=== PATIENT | male | born 1960 | race African-American/Black ===

== ENCOUNTER 2023-05-25 13:05 | Inpatient (IN) | payer OTHER ==
[~2023-05-25] VITALS: Ht 175.3 cm; Wt 72.8 kg
[2023-05-25] MEDS ORDERED: metformin (13:12)
[2023-05-25] MEDS ORDERED: gabapentin (13:12)
[2023-05-25] MEDS ORDERED: LIDOCAINE HCL/EPINEPHRINE 1%-EPI 1:100,000 20 ML VIAL INFIL ONE (13:15)
[2023-05-25 15:15] LABS: HEMOGLOBIN. 10.1 g/dL (14.0-18.0); MEAN CORPUSCULAR HEMOGLOBIN 29.2 pg (28.0-32.0); MEAN CORPUSCULAR HGB CONC 32.7 g/dL (31.0-37.0); MEAN CORPUSCULAR VOLUME 89.6 fL (80.0-94.0); MEAN PLATELET VOLUME 8.2 fl (7.4-10.4); PLATELET 302 x1000/uL (130-400); RED BLOOD CELL COUNT 3.47 mill/uL (4.7-6.1); RED CELL DISTRIBUTION WIDTH 15.8 % (11.6-14.6); WHITE BLOOD COUNT 33.5 x1000/uL (4.5-11.0)
[2023-05-25 15:18] LABS: DIFFERENTIAL COMMENT 1
[2023-05-25 15:23] LABS: INR 1.3; PARTIAL THROMBOPLASTIN TIME 37.2 sec (23.4-31.0); PROTHROMBIN TIME 13.7 sec (9.6-11.0)
[2023-05-25 15:26] LABS: CHLORIDE 92 mEq/L (98-107); INDEX HEMOLYSI 1 (1-3); INDEX ICTERIC 1 (1-4); INDEX LIPEMIC 1 (1-3); POTASSIUM 4.3 mEq/L (3.5-5.1); SODIUM 127 mEq/L (136-145)
[2023-05-25 15:34] LABS: ALANINE AMINOTRANSFERASE 30 IU/L (13-61); ALBUMIN 1.9 g/dL (3.4-5.0); ASPARTATE AMINOTRANSFERASE 14 IU/L (15-37); CALCIUM 8.3 mg/dL (8.5-10.1); CARBON DIOXIDE 27 mEq/L (21-32); CREATININE 0.8 mg/dL (0.6-1.3); PROTEIN TOTAL 8.1 g/dL (6.0-8.3); UREA NITROGEN BLOOD 23 mg/dL (7-21)
[2023-05-25 15:50] LABS: GLUCOSE 554 mg/dL (70-105)
[2023-05-25 16:26] LABS: PLATELET ESTIMATE NORMAL
[2023-05-25] MEDS ORDERED: PIPERACILLIN/TAZ 3.375G PREMIX 50 ML IV ONE (19:00)
[2023-05-25] MEDS ORDERED: VANCOMYCIN 1G PREMIX 200 ML IV ONE (19:00)
[2023-05-25] MEDS ORDERED: SODIUM CHLORIDE 0.9% 1000ML BAG (SEPSIS BOLUS) IV ONE (19:00)
[2023-05-25] MEDS ORDERED: LINEZOLID 600 MG PREMIX 300 ML IV SCH (19:15)
[2023-05-25] MEDS ORDERED: PIPERACILLIN/TAZ 3.375G PREMIX 50 ML IV NR (19:45)
[2023-05-25 20:25] LABS: INR 1.3; PROTHROMBIN TIME 13.9 sec (9.6-11.0)
[2023-05-26] VITALS: BP 108/74; PULSE 91; RESP 20; TEMP 100.4
[2023-05-26] MEDS: SODIUM CHLORIDE 0.9% 1,000 ML IV SCH ×3 (02:01→22:00)
[2023-05-26 02:32] VITALS: BP 108/74; PULSE 91; RESP 18; TEMP 100.4
[2023-05-26] MEDS ORDERED: VANCOMYCIN 1.5GM/250ML IVPB 250 ML IV NR (03:30)
[2023-05-26 04:00] VITALS: BP 105/71; PULSE 84; RESP 20; TEMP 100.9
[2023-05-26] MEDS: BLOOD SUGAR DIAGNOSTIC STRIP TEST SCH ×4 (07:04→21:00)
[2023-05-26] MEDS: INSULIN LISPRO 100 UNITS/ML SUBCUT SCH ×5 (07:06→21:00)
[2023-05-26] MEDS: PIPERACILLIN/TAZOBACTAM 3.375 G in DEXTROSE 5% WATER 50 ML IV SCH ×3 (07:17→22:32)
[2023-05-26] MEDS: INSULIN GLARGINE 100 UNITS/ML SUBCUT SCH ×2 (10:00→22:17)
[2023-05-26] MEDS ORDERED: LIDOCAINE HCL 1% 10 MG/ML 10ML VIAL ONE (13:26)
[2023-05-26] MEDS ORDERED: BUPIVACAINE HCL/PF 0.5% (5MG/ML) 10ML ONE (13:26)
[2023-05-26] MEDS ORDERED: POLYMYXIN B SULFATE 500000 UNITS/VIAL ONE (13:26)
[2023-05-26] MEDS ORDERED: VANCOMYCIN HCL 1 GM/VIAL ONE (13:27)
[2023-05-26] MEDS ORDERED: PROPOFOL 200MG/20ML VIAL IV ONE (14:20)
[2023-05-26] MEDS ORDERED: FENTANYL CITRATE/PF 50MCG/ML 2ML VIAL ONE (14:20)
[2023-05-26] MEDS ORDERED: ONDANSETRON HCL 4MG/2ML INJ IV PRN (15:45)
[2023-05-26] MEDS ORDERED: MEPERIDINE HCL/PF 25MG/ML CPJ IV PRN (15:45)
[2023-05-26] MEDS ORDERED: FENTANYL CITRATE/PF 50MCG/ML 2ML VIAL IV PRN (15:45)
[2023-05-26] MEDS ORDERED: DEXAMETHASONE 4MG/ML 1ML VIAL ONE (15:47)
[2023-05-26] MEDS ORDERED: ONDANSETRON HCL 4MG/2ML INJ ONE (15:47)
[2023-05-26] MEDS: VANCOMYCIN 1G PREMIX 200 ML IV SCH (17:35)
[2023-05-26 20:00] VITALS: BP_SYST 89; BP_SYST 92; BP_DIAS 53; BP_DIAS 54; PULSE 88; RESP 18; TEMP 96.5
[2023-05-26] MEDS ORDERED: FERR-63 PO (22:34)
[2023-05-26] MEDS ORDERED: METF-416 PO (22:34)
[2023-05-26] MEDS ORDERED: AMIKACIN SULFATE 500 MG in SODIUM CHLORIDE 0.9% 100 ML IV NR (23:00)
[2023-05-27] VITALS: BP 97/62; PULSE 84; RESP 18; TEMP 96.7
[2023-05-27] MEDS: VANCOMYCIN 1G PREMIX 200 ML IV SCH ×2 (03:30→15:30)
[2023-05-27 04:00] VITALS: BP 99/64; PULSE 74; RESP 18; TEMP 97.6
[2023-05-27] MEDS: PIPERACILLIN/TAZOBACTAM 3.375 G in DEXTROSE 5% WATER 50 ML IV SCH ×2 (05:20→14:00)
[2023-05-27 06:12] LABS: HEMATOCRIT. 21.2 % (42.0-52.0); MEAN CORPUSCULAR HEMOGLOBIN 29.2 pg (28.0-32.0); MEAN CORPUSCULAR HGB CONC 33.1 g/dL (31.0-37.0); MEAN CORPUSCULAR VOLUME 88.2 fL (80.0-94.0); MEAN PLATELET VOLUME 8.2 fl (7.4-10.4); PLATELET 248 x1000/uL (130-400); RED BLOOD CELL COUNT 2.41 mill/uL (4.7-6.1); RED CELL DISTRIBUTION WIDTH 15.7 % (11.6-14.6)
[2023-05-27 06:21] LABS: DIFFERENTIAL COMMENT 1
[2023-05-27 06:24] LABS: WHITE BLOOD COUNT 41.4 x1000/uL (4.5-11.0)
[2023-05-27 06:25] LABS: CALCIUM 7.2 mg/dL (8.7-10.4); CARBON DIOXIDE 28 mEq/L (21-32); CHLORIDE 104 mEq/L (98-107); CREATININE 0.8 mg/dL (0.6-1.3); POTASSIUM 4.1 mEq/L (3.5-5.1); SODIUM 137 mEq/L (136-145); UREA NITROGEN BLOOD 21 mg/dL (9-23)
[2023-05-27 06:37] LABS: GLUCOSE 185 mg/dL (70-105)
[2023-05-27] MEDS: SODIUM CHLORIDE 0.9% 1,000 ML IV SCH ×2 (06:56→17:23)
[2023-05-27] MEDS: BLOOD SUGAR DIAGNOSTIC STRIP TEST SCH ×4 (08:03→20:21)
[2023-05-27] MEDS: INSULIN LISPRO 100 UNITS/ML SUBCUT SCH ×4 (08:08→21:33)
[2023-05-27] MEDS: INSULIN GLARGINE 100 UNITS/ML SUBCUT SCH ×2 (10:20→21:33)
[2023-05-27 20:00] VITALS: BP 98/49; PULSE 100; RESP 20; TEMP 97.5
[2023-05-27] MEDS: MEROPENEM 1,000 MG in SODIUM CHLORIDE 0.9% 100 ML IV SCH (20:21)
[2023-05-27 21:06] LABS: PLATELET ESTIMATE NORMAL
[2023-05-27 21:07] LABS: ANISOCYTOSIS 1+; HYPOCHROMASIA 1+
[2023-05-28] VITALS (8 sets, daily range): BP systolic 93–121; BP diastolic 45–66; PULSE 64–101; RESP 16–20; TEMP 96.9–98.7
[2023-05-28] MEDS: ACETAMINOPHEN 650MG/20.3ML UDC PO PRN ×2 (00:28→21:13)
[2023-05-28] MEDS: SODIUM CHLORIDE 0.9% 1,000 ML IV SCH ×3 (02:24→23:15)
[2023-05-28] MEDS: VANCOMYCIN 1G PREMIX 200 ML IV SCH ×2 (02:46→17:43)
[2023-05-28] MEDS: MEROPENEM 1,000 MG in SODIUM CHLORIDE 0.9% 100 ML IV SCH ×2 (05:36→13:47)
[2023-05-28] MEDS: BLOOD SUGAR DIAGNOSTIC STRIP TEST SCH ×4 (07:13→21:04)
[2023-05-28] MEDS: INSULIN LISPRO 100 UNITS/ML SUBCUT SCH ×4 (07:14→21:11)
[2023-05-28 08:08] LABS: *AMPHETAMINES SCREEN URINE NEGATIVE (NEGATIVE); *BARBITURATES SCREEN URINE NEGATIVE (NEGATIVE); *BENZODIAZEPINES SCREEN URINE NEGATIVE (NEGATIVE); *COCAINE SCREEN URINE PRESUMPTIVE POSITIVE (NEGATIVE); CANNABINOID URINE SCREEN NEGATIVE (NEGATIVE); ECSTASY MDMA SCREEN URINE NEGATIVE (NEGATIVE); METHADONE URINE SCREEN Neg (NEGATIVE); OPIATES URINE SCREEN NEGATIVE (NEGATIVE); PHENCYCLIDINE URINE SCREEN NEGATIVE (NEGATIVE)
[2023-05-28 10:06] LABS: MEAN CORPUSCULAR HGB CONC 32.5 g/dL (31.0-37.0); MEAN CORPUSCULAR VOLUME 89.1 fL (80.0-94.0); MEAN PLATELET VOLUME 7.9 fl (7.4-10.4); PLATELET 320 x1000/uL (130-400); RED BLOOD CELL COUNT 2.21 mill/uL (4.7-6.1); RED CELL DISTRIBUTION WIDTH 15.9 % (11.6-14.6); WHITE BLOOD COUNT 35.7 x1000/uL (4.5-11.0)
[2023-05-28 10:12] LABS: DIFFERENTIAL COMMENT 1
[2023-05-28 10:15] LABS: HEMATOCRIT. 19.7 % (42.0-52.0); HEMOGLOBIN. 6.4 g/dL (14.0-18.0)
[2023-05-28 10:27] LABS: CALCIUM 7.1 mg/dL (8.7-10.4); CARBON DIOXIDE 25 mEq/L (21-32); CHLORIDE 102 mEq/L (98-107); CREATININE 0.7 mg/dL (0.6-1.3); GLUCOSE 160 mg/dL (70-105); POTASSIUM 3.9 mEq/L (3.5-5.1); SODIUM 133 mEq/L (136-145); UREA NITROGEN BLOOD 14 mg/dL (9-23)
[2023-05-28] MEDS: INSULIN GLARGINE 100 UNITS/ML SUBCUT SCH ×2 (11:00→21:11)
[2023-05-28 21:10] LABS: HEMATOCRIT 19.3 % (42.0-52.0); HEMOGLOBIN 6.4 g/dL (14.0-18.0)
[2023-05-29 00:20] VITALS: BP 95/57; PULSE 89; RESP 16; TEMP 96.8
[2023-05-29 01:05] VITALS: BP 102/63; PULSE 85; RESP 18; TEMP 99
[2023-05-29] MEDS: MEROPENEM 1,000 MG in SODIUM CHLORIDE 0.9% 100 ML IV SCH ×3 (01:30→18:20)
[2023-05-29 03:30] LABS: BASOPHILS % 0.1 % (0.0-2.0); EOSINOPHILS % 0.2 % (0.0-5.0); HEMATOCRIT. 22.2 % (42.0-52.0); HEMOGLOBIN. 7.3 g/dL (14.0-18.0); MEAN CORPUSCULAR HEMOGLOBIN 28.4 pg (28.0-32.0); MEAN CORPUSCULAR HGB CONC 32.7 g/dL (31.0-37.0); MEAN CORPUSCULAR VOLUME 86.7 fL (80.0-94.0); MEAN PLATELET VOLUME 7.4 fl (7.4-10.4); NEUTROPHILS % 85.7 % (40.0-76.0); PLATELET 401 x1000/uL (130-400); RED BLOOD CELL COUNT 2.56 mill/uL (4.7-6.1); RED CELL DISTRIBUTION WIDTH 18.1 % (11.6-14.6); WHITE BLOOD COUNT 28.8 x1000/uL (4.5-11.0)
[2023-05-29 03:44] LABS: INR 1.3; PROTHROMBIN TIME 13.6 sec (9.6-11.0)
[2023-05-29 03:57] LABS: CALCIUM 7.1 mg/dL (8.7-10.4); CARBON DIOXIDE 26 mEq/L (21-32); CHLORIDE 101 mEq/L (98-107); CREATININE 0.9 mg/dL (0.6-1.3); GLUCOSE 292 mg/dL (70-105); POTASSIUM 4.4 mEq/L (3.5-5.1); SODIUM 132 mEq/L (136-145); UREA NITROGEN BLOOD 16 mg/dL (9-23)
[2023-05-29 04:00] VITALS: BP 101/58; PULSE 97; RESP 18; TEMP 97.9
[2023-05-29] MEDS: VANCOMYCIN 1G PREMIX 200 ML IV SCH ×2 (05:11→18:00)
[2023-05-29 05:49] LABS: PLATELET ESTIMATE NORMAL
[2023-05-29] MEDS: BLOOD SUGAR DIAGNOSTIC STRIP TEST SCH ×4 (07:12→21:00)
[2023-05-29 08:00] VITALS: BP 116/70; PULSE 58; RESP 16; TEMP 96.8
[2023-05-29] MEDS: INSULIN GLARGINE 100 UNITS/ML SUBCUT SCH (10:00)
[2023-05-29] MEDS: INSULIN LISPRO 100 UNITS/ML SUBCUT SCH ×4 (10:09→21:00)
[2023-05-29 12:00] VITALS: BP 120/65; PULSE 60; RESP 17; TEMP 97.3
[2023-05-29 16:00] VITALS: BP 105/68; PULSE 68; RESP 17; TEMP 97.3
[2023-05-29] MEDS: SODIUM CHLORIDE 0.9% 1,000 ML IV SCH (19:15)
[2023-05-30] VITALS (7 sets, daily range): BP systolic 84–104; BP diastolic 46–66; PULSE 69–99; RESP 16–20; TEMP 97.7–101.7
[2023-05-30] MEDS: SODIUM CHLORIDE 0.9% 1,000 ML IV SCH (05:15)
[2023-05-30] MEDS: INSULIN LISPRO 100 UNITS/ML SUBCUT SCH ×2 (07:50→18:35)
[2023-05-30 08:23] LABS: BASOPHILS % 0.3 % (0.0-2.0); DIFFERENTIAL COMMENT 0; EOSINOPHILS % 0.2 % (0.0-5.0); LYMPHOCYTES % 10.2 % (20.0-50.0); MEAN CORPUSCULAR HEMOGLOBIN 28.7 pg (28.0-32.0); MEAN CORPUSCULAR HGB CONC 33.1 g/dL (31.0-37.0); MEAN CORPUSCULAR VOLUME 86.7 fL (80.0-94.0); MEAN PLATELET VOLUME 7.6 fl (7.4-10.4); NEUTROPHILS % 83.3 % (40.0-76.0); PLATELET 572 x1000/uL (130-400); RED BLOOD CELL COUNT 2.19 mill/uL (4.7-6.1); RED CELL DISTRIBUTION WIDTH 18.5 % (11.6-14.6); WHITE BLOOD COUNT 27.3 x1000/uL (4.5-11.0)
[2023-05-30 09:08] LABS: HEMOGLOBIN. 6.3 g/dL (14.0-18.0)
[2023-05-30] MEDS: MEROPENEM 1,000 MG in SODIUM CHLORIDE 0.9% 100 ML IV SCH (09:30)
[2023-05-30] MEDS: INSULIN GLARGINE 100 UNITS/ML SUBCUT SCH ×2 (09:39→22:00)
[2023-05-30] MEDS: ACETAMINOPHEN 650MG/20.3ML UDC PO PRN (15:44)
[2023-05-30] MEDS: DIPHENHYDRAMINE 50MG CAPSULE PO PRN (18:19)
[2023-05-30] MEDS: VANCOMYCIN 1G PREMIX 200 ML IV SCH (20:49)
[2023-05-30] MEDS: BLOOD SUGAR DIAGNOSTIC STRIP TEST SCH (21:00)
[2023-05-30] MEDS ORDERED: INSULIN LISPRO 100 UNITS/ML SUBCUT NR (22:15)
[2023-05-30] MEDS ORDERED: IOHEXOL-350 100 ML BOTTLE ONE (23:09)
[2023-05-31] VITALS (9 sets, daily range): BP systolic 94–135; BP diastolic 50–77; PULSE 83–99; RESP 16–20; TEMP 95.9–100.2
[2023-05-31] MEDS: SODIUM CHLORIDE 0.9% 1,000 ML IV SCH ×2 (01:15→21:09)
[2023-05-31] MEDS: MEROPENEM 1,000 MG in SODIUM CHLORIDE 0.9% 100 ML IV SCH ×3 (01:38→17:21)
[2023-05-31] MEDS: VANCOMYCIN 1G PREMIX 200 ML IV SCH ×2 (06:34→18:04)
[2023-05-31 07:11] LABS: BASOPHILS % 0.5 % (0.0-2.0); DIFFERENTIAL COMMENT 0; EOSINOPHILS % 0.5 % (0.0-5.0); LYMPHOCYTES % 11.7 % (20.0-50.0); MEAN CORPUSCULAR HEMOGLOBIN 29.4 pg (28.0-32.0); MEAN CORPUSCULAR HGB CONC 34.3 g/dL (31.0-37.0); MEAN CORPUSCULAR VOLUME 85.6 fL (80.0-94.0); MEAN PLATELET VOLUME 7.4 fl (7.4-10.4); MONOCYTES % 8.3 % (2.0-8.0); PLATELET 814 x1000/uL (130-400); RED BLOOD CELL COUNT 2.28 mill/uL (4.7-6.1); RED CELL DISTRIBUTION WIDTH 17.8 % (11.6-14.6); WHITE BLOOD COUNT 20.7 x1000/uL (4.5-11.0)
[2023-05-31] MEDS: BLOOD SUGAR DIAGNOSTIC STRIP TEST SCH ×4 (07:20→21:08)
[2023-05-31 07:44] LABS: CALCIUM 7.5 mg/dL (8.7-10.4); CARBON DIOXIDE 27 mEq/L (21-32); CHLORIDE 103 mEq/L (98-107); CREATININE 0.7 mg/dL (0.6-1.3); POTASSIUM 4.3 mEq/L (3.5-5.1); SODIUM 134 mEq/L (136-145); UREA NITROGEN BLOOD 14 mg/dL (9-23)
[2023-05-31 07:53] LABS: GLUCOSE 55 mg/dL (70-105); HEMOGLOBIN. 6.7 g/dL (14.0-18.0)
[2023-05-31 07:54] LABS: HEMATOCRIT. 19.5 % (42.0-52.0)
[2023-05-31] MEDS: INSULIN LISPRO 100 UNITS/ML SUBCUT SCH ×4 (09:22→21:00)
[2023-05-31] MEDS: INSULIN GLARGINE 100 UNITS/ML SUBCUT SCH ×2 (09:22→22:49)
[2023-05-31] MEDS: ACETAMINOPHEN 650MG/20.3ML UDC PO PRN (09:55)
[2023-05-31] MEDS: DIPHENHYDRAMINE 50MG CAPSULE PO PRN ×2 (09:59→23:25)
[2023-06-01] MEDS: MEROPENEM 1,000 MG in SODIUM CHLORIDE 0.9% 100 ML IV SCH ×3 (01:14→17:30)
[2023-06-01 05:36] LABS: HEMATOCRIT. 22.6 % (42.0-52.0); HEMOGLOBIN. 7.7 g/dL (14.0-18.0); MEAN CORPUSCULAR HEMOGLOBIN 29.4 pg (28.0-32.0); MEAN CORPUSCULAR HGB CONC 34.1 g/dL (31.0-37.0); MEAN CORPUSCULAR VOLUME 86.2 fL (80.0-94.0); PLATELET 975 x1000/uL (130-400); RED BLOOD CELL COUNT 2.62 mill/uL (4.7-6.1); RED CELL DISTRIBUTION WIDTH 17.3 % (11.6-14.6); WHITE BLOOD COUNT 20.2 x1000/uL (4.5-11.0)
[2023-06-01] MEDS: SODIUM CHLORIDE 0.9% 1,000 ML IV SCH (06:04)
[2023-06-01] MEDS: VANCOMYCIN 1G PREMIX 200 ML IV SCH (06:04)
[2023-06-01 06:24] LABS: DIFFERENTIAL COMMENT 1
[2023-06-01 07:20] LABS: CALCIUM 7.4 mg/dL (8.7-10.4); CARBON DIOXIDE 26 mEq/L (21-32); CHLORIDE 104 mEq/L (98-107); CREATININE 0.7 mg/dL (0.6-1.3); GLUCOSE 58 mg/dL (70-105); POTASSIUM 4.2 mEq/L (3.5-5.1); SODIUM 135 mEq/L (136-145); UREA NITROGEN BLOOD 15 mg/dL (9-23)
[2023-06-01] MEDS: BLOOD SUGAR DIAGNOSTIC STRIP TEST SCH ×4 (07:23→21:00)
[2023-06-01] MEDS: INSULIN LISPRO 100 UNITS/ML SUBCUT SCH ×3 (07:23→17:50)
[2023-06-01 08:00] VITALS: BP_SYST 111; BP_SYST 115; BP_DIAS 54; BP_DIAS 68; PULSE 59; PULSE 89; RESP 19; RESP 20; TEMP 95.5; TEMP 98
[2023-06-01] MEDS: INSULIN GLARGINE 100 UNITS/ML SUBCUT SCH (10:00)
[2023-06-01 10:37] LABS: ANISOCYTOSIS 1+; PLATELET ESTIMATE MARKEDLY INCREASED
[2023-06-01 12:00] VITALS: BP 99/56; PULSE 99; RESP 19; TEMP 100.2
[2023-06-01] MEDS ORDERED: LIDOCAINE HCL 1% 20ML VIAL (Pyxis) INJ ONE (14:29)
[2023-06-01] MEDS ORDERED: BUPIVACAINE HCL/PF 0.5% (5MG/ML) 10ML ONE (14:29)
[2023-06-01] MEDS: DEXT 5%/0.45% NACL 1000ML 1,000 ML IV SCH (16:15)
[2023-06-01] MEDS ORDERED: HYDROMORPHONE HCL/PF 2MG/ML CPJ ONE (17:48)
[2023-06-01] MEDS ORDERED: FENTANYL CITRATE/PF 50MCG/ML 2ML VIAL ONE (17:48)
[2023-06-01] MEDS ORDERED: LIDOCAINE HCL 1% 10 MG/ML 10ML VIAL ONE (17:48)
[2023-06-01] MEDS ORDERED: METOCLOPRAMIDE HCL 10MG/2ML VIAL ONE (17:48)
[2023-06-01] MEDS ORDERED: PROPOFOL 200MG/20ML VIAL IV ONE (17:48)
[2023-06-01] MEDS ORDERED: CEFAZOLIN SODIUM 1000MG/VIAL ONE (17:48)
[2023-06-01] MEDS ORDERED: ONDANSETRON HCL 4MG/2ML INJ ONE (17:48)
[2023-06-01 18:00] VITALS: BP 118/70; PULSE 18; RESP 16; TEMP 97.9
[2023-06-01] MEDS: DEXTROSE 50% WATER 50ML SYRINGE IV PRN (18:46)
[2023-06-01] MEDS ORDERED: FENTANYL CITRATE/PF 50MCG/ML 2ML VIAL IV PRN (21:00)
[2023-06-01] MEDS ORDERED: HYDROMORPHONE HCL/PF 2MG/ML CPJ IV PRN (21:00)
[2023-06-01] MEDS ORDERED: NALOXONE HCL 0.4 MG/ML 1ML VIAL ONE (22:05)
[2023-06-01] MEDS ORDERED: NALOXONE HCL 0.4MG/ML VIAL IV PRN (22:15)
[2023-06-01] MEDS ORDERED: NALOXONE HCL 0.4 MG/ML 1ML VIAL IV ONE (22:15)
[2023-06-01] MEDS ORDERED: IPRATROPIUM/ALBUTEROL 0.5-3(2.5)MG/3ML NEB HHN NR (22:45)
[2023-06-02] VITALS (38 sets, daily range): BP systolic 106–207; BP diastolic 67–157; PULSE 71–99; RESP 9–22; TEMP 97.6–99
[2023-06-02] MEDS: BLOOD SUGAR DIAGNOSTIC STRIP TEST SCH ×17 (04:17→20:00)
[2023-06-02] MEDS: DEXTROSE 50% WATER 50ML SYRINGE IV PRN ×5 (04:17→10:12)
[2023-06-02 05:51] LABS: BASOPHILS % 0.4 % (0.0-2.0); EOSINOPHILS % 0.2 % (0.0-5.0); HEMATOCRIT. 25.7 % (42.0-52.0); HEMOGLOBIN. 8.6 g/dL (14.0-18.0); LYMPHOCYTES % 7.9 % (20.0-50.0); MEAN CORPUSCULAR HEMOGLOBIN 29.9 pg (28.0-32.0); MEAN CORPUSCULAR HGB CONC 33.5 g/dL (31.0-37.0); MEAN CORPUSCULAR VOLUME 89.2 fL (80.0-94.0); MONOCYTES % 8.3 % (2.0-8.0); NEUTROPHILS % 83.2 % (40.0-76.0); RED BLOOD CELL COUNT 2.88 mill/uL (4.7-6.1); RED CELL DISTRIBUTION WIDTH 16.9 % (11.6-14.6)
[2023-06-02 06:23] LABS: CALCIUM 7.6 mg/dL (8.7-10.4); CARBON DIOXIDE 24 mEq/L (21-32); CHLORIDE 106 mEq/L (98-107); CREATININE 0.6 mg/dL (0.6-1.3); GLUCOSE 81 mg/dL (70-105); POTASSIUM 4.3 mEq/L (3.5-5.1); SODIUM 137 mEq/L (136-145); UREA NITROGEN BLOOD 10 mg/dL (9-23)
[2023-06-02] MEDS: INSULIN LISPRO 100 UNITS/ML SUBCUT SCH ×4 (07:00→21:00)
[2023-06-02 07:32] LABS: DIFFERENTIAL COMMENT 1
[2023-06-02] MEDS: INSULIN GLARGINE 100 UNITS/ML SUBCUT SCH (09:50)
[2023-06-02] MEDS: MEROPENEM 1,000 MG in SODIUM CHLORIDE 0.9% 100 ML IV SCH ×2 (11:25→17:37)
[2023-06-02] MEDS: VANCOMYCIN 1G PREMIX 200 ML IV SCH (12:18)
[2023-06-02] MEDS: DEXT 5%/0.45% NACL 1000ML 1,000 ML IV SCH (12:19)
[2023-06-02] MEDS: DEXT 10% WATER 1,000 ML IV SCH (15:36)
[2023-06-02] MEDS ORDERED: DIPHENHYDRAMINE 25MG CAPSULE PO PRN (16:30)
[2023-06-02] MEDS: MORPHINE SULFATE 4 MG/ML CPJ (NOT FOR IM USE) IV PRN (22:27)
[2023-06-03] VITALS (27 sets, daily range): BP systolic 92–183; BP diastolic 55–106; PULSE 65–95; RESP 9–20; TEMP 98.7–99.2
[2023-06-03 00:13] LABS: BASOPHILS % 0.7 % (0.0-2.0); EOSINOPHILS % 0.7 % (0.0-5.0); HEMATOCRIT. 22.2 % (42.0-52.0); HEMOGLOBIN. 7.3 g/dL (14.0-18.0); MEAN CORPUSCULAR HEMOGLOBIN 29.6 pg (28.0-32.0); MEAN CORPUSCULAR HGB CONC 32.9 g/dL (31.0-37.0); MEAN CORPUSCULAR VOLUME 89.8 fL (80.0-94.0); MEAN PLATELET VOLUME 6.6 fl (7.4-10.4); MONOCYTES % 9.6 % (2.0-8.0); RED BLOOD CELL COUNT 2.48 mill/uL (4.7-6.1); RED CELL DISTRIBUTION WIDTH 16.4 % (11.6-14.6); WHITE BLOOD COUNT 14.6 x1000/uL (4.5-11.0)
[2023-06-03 00:19] LABS: DIFFERENTIAL COMMENT 1
[2023-06-03 00:24] LABS: PLATELET 1087 x1000/uL (130-400)
[2023-06-03] MEDS: MEROPENEM 1,000 MG in SODIUM CHLORIDE 0.9% 100 ML IV SCH ×3 (02:00→18:00)
[2023-06-03] MEDS: MORPHINE SULFATE 4 MG/ML CPJ (NOT FOR IM USE) IV PRN (03:27)
[2023-06-03] MEDS: INSULIN LISPRO 100 UNITS/ML SUBCUT SCH ×3 (07:00→18:03)
[2023-06-03] MEDS: VANCOMYCIN 1G PREMIX 200 ML IV SCH ×4 (07:14→23:54)
[2023-06-03] MEDS: DEXT 10% WATER 1,000 ML IV SCH (10:49)
[2023-06-03 10:56] LABS: BASOPHILS % 0.7 % (0.0-2.0); EOSINOPHILS % 0.2 % (0.0-5.0); HEMATOCRIT. 26.7 % (42.0-52.0); HEMOGLOBIN. 8.9 g/dL (14.0-18.0); LYMPHOCYTES % 10.2 % (20.0-50.0); MEAN CORPUSCULAR HEMOGLOBIN 29.8 pg (28.0-32.0); MEAN CORPUSCULAR HGB CONC 33.4 g/dL (31.0-37.0); MEAN CORPUSCULAR VOLUME 89.2 fL (80.0-94.0); MEAN PLATELET VOLUME 6.6 fl (7.4-10.4); MONOCYTES % 7.7 % (2.0-8.0); NEUTROPHILS % 81.2 % (40.0-76.0); RED BLOOD CELL COUNT 2.99 mill/uL (4.7-6.1); RED CELL DISTRIBUTION WIDTH 15.9 % (11.6-14.6); WHITE BLOOD COUNT 15.7 x1000/uL (4.5-11.0)
[2023-06-03 11:01] LABS: DIFFERENTIAL COMMENT 1
[2023-06-03 11:02] LABS: PLATELET 1235 x1000/uL (130-400)
[2023-06-03] MEDS: BLOOD SUGAR DIAGNOSTIC STRIP TEST SCH ×3 (12:19→23:54)
[2023-06-03 12:47] LABS: CALCIUM 7.4 mg/dL (8.7-10.4); CARBON DIOXIDE 26 mEq/L (21-32); CHLORIDE 105 mEq/L (98-107); CREATININE 0.7 mg/dL (0.6-1.3); POTASSIUM 4.8 mEq/L (3.5-5.1); SODIUM 138 mEq/L (136-145); UREA NITROGEN BLOOD 12 mg/dL (9-23)
[2023-06-03 12:54] LABS: GLUCOSE 234 mg/dL (70-105)
[2023-06-03] MEDS ORDERED: THIAMINE HCL 100 MG in SODIUM CHLORIDE 0.9% 49 ML IV NR (22:30)
[2023-06-04] VITALS (36 sets, daily range): BP systolic 125–151; BP diastolic 64–102; PULSE 69–94; RESP 11–18; TEMP 97.8–98.7
[2023-06-04] MEDS: INSULIN LISPRO 100 UNITS/ML SUBCUT SCH ×5 (00:37→23:59)
[2023-06-04] MEDS: MEROPENEM 1,000 MG in SODIUM CHLORIDE 0.9% 100 ML IV SCH ×4 (02:35→23:55)
[2023-06-04] MEDS: BLOOD SUGAR DIAGNOSTIC STRIP TEST SCH ×4 (06:46→23:55)
[2023-06-04 09:49] LABS: HEMATOCRIT 23.8 % (42.0-52.0); HEMOGLOBIN 7.8 g/dL (14.0-18.0); MEAN CORPUSCULAR HEMOGLOBIN 29.1 pg (28.0-32.0); MEAN CORPUSCULAR HGB CONC 32.8 g/dL (31.0-37.0); MEAN CORPUSCULAR VOLUME 88.7 fL (80.0-94.0); RED BLOOD CELL COUNT 2.68 mill/uL (4.7-6.1); RED CELL DISTRIBUTION WIDTH 16.1 % (11.6-14.6); WHITE BLOOD COUNT 15.2 x1000/uL (4.5-11.0)
[2023-06-04 10:58] LABS: CALCIUM 7.5 mg/dL (8.7-10.4); CARBON DIOXIDE 28 mEq/L (21-32); CHLORIDE 105 mEq/L (98-107); CREATININE 0.6 mg/dL (0.6-1.3); GLUCOSE 156 mg/dL (70-105); SODIUM 139 mEq/L (136-145); UREA NITROGEN BLOOD 10 mg/dL (9-23)
[2023-06-04] MEDS: DEXT 10% WATER 1,000 ML IV SCH (11:51)
[2023-06-04] MEDS: PANTOPRAZOLE SODIUM 40 MG/VIAL IV SCH (11:52)
[2023-06-04] MEDS: DEXT 5%/0.9% NACL 1,000 ML IV SCH (13:16)
[2023-06-04 13:58] LABS: PLATELET 1242 x1000/uL (130-400)
[2023-06-04] MEDS: VANCOMYCIN 1G PREMIX 200 ML IV SCH (17:25)
[2023-06-05] VITALS (55 sets, daily range): BP systolic 113–156; BP diastolic 62–115; PULSE 60–93; RESP 8–25; TEMP 97.4–98.4
[2023-06-05] MEDS: MORPHINE SULFATE 4 MG/ML CPJ (NOT FOR IM USE) IV PRN (00:09)
[2023-06-05] MEDS: DEXT 5%/0.9% NACL 1,000 ML IV SCH ×2 (00:10→15:25)
[2023-06-05] MEDS: BLOOD SUGAR DIAGNOSTIC STRIP TEST SCH ×4 (06:52→17:17)
[2023-06-05] MEDS: INSULIN LISPRO 100 UNITS/ML SUBCUT SCH ×4 (07:02→18:14)
[2023-06-05] MEDS: PANTOPRAZOLE SODIUM 40 MG/VIAL IV SCH (08:21)
[2023-06-05] MEDS: MEROPENEM 1,000 MG in SODIUM CHLORIDE 0.9% 100 ML IV SCH ×2 (08:21→17:17)
[2023-06-05] MEDS ORDERED: LORAZEPAM 2MG/ML INJ IV NR (09:30)
[2023-06-05] MEDS ORDERED: LORAZEPAM 4MG/ML INJ IV NR (09:33)
[2023-06-05] MEDS: VANCOMYCIN 1G PREMIX 200 ML IV SCH (11:34)
[2023-06-05 12:25] LABS: HEMATOCRIT 25.9 % (42.0-52.0); HEMOGLOBIN 8.5 g/dL (14.0-18.0); MEAN CORPUSCULAR HEMOGLOBIN 28.8 pg (28.0-32.0); MEAN CORPUSCULAR HGB CONC 32.8 g/dL (31.0-37.0); MEAN CORPUSCULAR VOLUME 87.7 fL (80.0-94.0); RED BLOOD CELL COUNT 2.95 mill/uL (4.7-6.1); RED CELL DISTRIBUTION WIDTH 15.9 % (11.6-14.6); WHITE BLOOD COUNT 12.2 x1000/uL (4.5-11.0)
[2023-06-05] MEDS ORDERED: LIDOCAINE HCL/PF 1% 10 MG/ML 5ML VIAL ONE (12:29)
[2023-06-05 12:45] LABS: CALCIUM 7.1 mg/dL (8.7-10.4); CARBON DIOXIDE 29 mEq/L (21-32); CHLORIDE 107 mEq/L (98-107); CREATININE 0.7 mg/dL (0.6-1.3); GLUCOSE 148 mg/dL (70-105); POTASSIUM 3.9 mEq/L (3.5-5.1); SODIUM 140 mEq/L (136-145); UREA NITROGEN BLOOD 11 mg/dL (9-23)
[2023-06-05] MEDS: ASPIRIN 81MG TABLET PO SCH (13:57)
[2023-06-05 15:48] LABS: PLATELET 1269 x1000/uL (130-400)
[2023-06-06] VITALS (26 sets, daily range): BP systolic 79–159; BP diastolic 53–100; PULSE 74–95; RESP 0–30; TEMP 97.4–99.5
[2023-06-06] MEDS: MEROPENEM 1,000 MG in SODIUM CHLORIDE 0.9% 100 ML IV SCH ×3 (01:39→17:45)
[2023-06-06] MEDS: MORPHINE SULFATE 4 MG/ML CPJ (NOT FOR IM USE) IV PRN ×3 (02:56→22:10)
[2023-06-06] MEDS: DEXT 5%/0.9% NACL 1,000 ML IV SCH ×2 (03:45→17:46)
[2023-06-06] MEDS: VANCOMYCIN 1G PREMIX 200 ML IV SCH ×2 (05:22→23:18)
[2023-06-06] MEDS: BLOOD SUGAR DIAGNOSTIC STRIP TEST SCH ×4 (05:22→23:56)
[2023-06-06 05:33] LABS: BASOPHILS % 0.9 % (0.0-2.0); EOSINOPHILS % 1.3 % (0.0-5.0); HEMATOCRIT. 24.4 % (42.0-52.0); HEMOGLOBIN. 8.2 g/dL (14.0-18.0); LYMPHOCYTES % 19.3 % (20.0-50.0); MEAN CORPUSCULAR HEMOGLOBIN 29.9 pg (28.0-32.0); MEAN CORPUSCULAR HGB CONC 33.4 g/dL (31.0-37.0); MEAN CORPUSCULAR VOLUME 89.5 fL (80.0-94.0); MEAN PLATELET VOLUME 6.2 fl (7.4-10.4); MONOCYTES % 9.1 % (2.0-8.0); NEUTROPHILS % 69.4 % (40.0-76.0); RED BLOOD CELL COUNT 2.73 mill/uL (4.7-6.1); RED CELL DISTRIBUTION WIDTH 15.8 % (11.6-14.6); WHITE BLOOD COUNT 11.4 x1000/uL (4.5-11.0)
[2023-06-06] MEDS: INSULIN LISPRO 100 UNITS/ML SUBCUT SCH ×5 (05:33→23:57)
[2023-06-06 05:54] LABS: CALCIUM 7.1 mg/dL (8.7-10.4); CARBON DIOXIDE 30 mEq/L (21-32); CHLORIDE 109 mEq/L (98-107); CREATININE 0.6 mg/dL (0.6-1.3); GLUCOSE 160 mg/dL (70-105); POTASSIUM 3.9 mEq/L (3.5-5.1); SODIUM 142 mEq/L (136-145); UREA NITROGEN BLOOD 10 mg/dL (9-23)
[2023-06-06 06:34] LABS: DIFFERENTIAL COMMENT 1; PLATELET 1181 x1000/uL (130-400)
[2023-06-06] MEDS: PANTOPRAZOLE SODIUM 40 MG/VIAL IV SCH (08:40)
[2023-06-06] MEDS: ASPIRIN 81MG TABLET PO SCH (08:40)
[2023-06-07] VITALS (71 sets, daily range): BP systolic 105–176; BP diastolic 67–112; PULSE 58–113; RESP 8–22; TEMP 97.4–99.6
[2023-06-07] MEDS: MEROPENEM 1,000 MG in SODIUM CHLORIDE 0.9% 100 ML IV SCH ×3 (00:44→16:37)
[2023-06-07 05:11] LABS: BASOPHILS % 1.2 % (0.0-2.0); EOSINOPHILS % 1.9 % (0.0-5.0); HEMATOCRIT. 24.4 % (42.0-52.0); LYMPHOCYTES % 17.3 % (20.0-50.0); MEAN CORPUSCULAR HEMOGLOBIN 29.5 pg (28.0-32.0); MEAN CORPUSCULAR HGB CONC 32.7 g/dL (31.0-37.0); MEAN CORPUSCULAR VOLUME 90.2 fL (80.0-94.0); MEAN PLATELET VOLUME 6.4 fl (7.4-10.4); MONOCYTES % 7.9 % (2.0-8.0); NEUTROPHILS % 71.7 % (40.0-76.0); WHITE BLOOD COUNT 12.8 x1000/uL (4.5-11.0)
[2023-06-07 05:20] LABS: DIFFERENTIAL COMMENT 1
[2023-06-07 05:22] LABS: PLATELET 1013 x1000/uL (130-400)
[2023-06-07] MEDS: INSULIN LISPRO 100 UNITS/ML SUBCUT SCH ×4 (05:27→23:19)
[2023-06-07] MEDS: BLOOD SUGAR DIAGNOSTIC STRIP TEST SCH ×4 (05:27→23:08)
[2023-06-07 05:36] LABS: CALCIUM 7.3 mg/dL (8.7-10.4); CARBON DIOXIDE 30 mEq/L (21-32); CHLORIDE 109 mEq/L (98-107); CREATININE 0.6 mg/dL (0.6-1.3); GLUCOSE 240 mg/dL (70-105); POTASSIUM 4.1 mEq/L (3.5-5.1); SODIUM 143 mEq/L (136-145); UREA NITROGEN BLOOD 9 mg/dL (9-23)
[2023-06-07] MEDS ORDERED: LIDOCAINE HCL 1%/EPI 1:200,000 30 ML VIAL ONE (06:20)
[2023-06-07] MEDS: DEXT 5%/0.9% NACL 1,000 ML IV SCH ×2 (06:45→21:00)
[2023-06-07] MEDS ORDERED: LIDOCAINE HCL 1% 10 MG/ML 10ML VIAL ONE (07:27)
[2023-06-07] MEDS ORDERED: ONDANSETRON HCL 4MG/2ML INJ ONE (07:27)
[2023-06-07] MEDS ORDERED: MIDAZOLAM HCL 2 MG/2 ML VIAL ONE (07:27)
[2023-06-07] MEDS ORDERED: DEXAMETHASONE 4MG/ML 1ML VIAL ONE (07:27)
[2023-06-07] MEDS ORDERED: PROPOFOL 200MG/20ML VIAL IV ONE (07:27)
[2023-06-07] MEDS ORDERED: FENTANYL CITRATE/PF 50MCG/ML 2ML VIAL ONE (07:27)
[2023-06-07] MEDS ORDERED: ROCURONIUM BROMIDE 10MG/ML VIAL 5ML IV ONE (08:09)
[2023-06-07 09:07] LABS: IMMUNOGLOBULIN A 507 mg/dL (61-437); IMMUNOGLOBULIN G 2375 mg/dL (603-1613); IMMUNOGLOBULIN M 46 mg/dL (20-172)
[2023-06-07] MEDS ORDERED: HYDROMORPHONE HCL/PF 2MG/ML CPJ ONE (09:23)
[2023-06-07] MEDS: PANTOPRAZOLE SODIUM 40 MG/VIAL IV SCH (11:33)
[2023-06-07 11:37] LABS: BG BASE EXCESS 1.8 mmol/L (-2.0-2.0); BG CARBOXYHEMOGLOBIN 0.2 % (0.5-1.5); BG DEOXYHEMOGLOBIN 5.7 % (0.0-5.0); BG METHEMOGLOBIN 0.3 % (0.0-1.5); BG OXYGEN SATURATION 94.3 % (92.0-98.5); BG OXYHEMOGLOBIN 93.8 % (94.0-97.0); BG PCO2 51.1 mmHg (35.0-45.0); BG PH 7.357 (7.350-7.450); BG PO2 77.7 mmHg (75.0-100.0); BG SAMPLE SITE RIGHT RADIAL; BG TOTAL HEMOGLOBIN 11.4 g/dL (12.0-18.0); BG VENT MODE VENT - AC
[2023-06-07] MEDS ORDERED: FENTANYL 2500MCG/250ML PMX 250 ML IV ONE (11:45)
[2023-06-07] MEDS ORDERED: NALOXONE HCL 0.4MG/ML VIAL IV PRN (11:45)
[2023-06-07] MEDS: MORPHINE SULFATE 4 MG/ML CPJ (NOT FOR IM USE) IV PRN (11:53)
[2023-06-07] MEDS ORDERED: FENTANYL CITRATE 2,500 MCG in SODIUM CHLORIDE 0.9% 200 ML IV PRN (12:00)
[2023-06-07] MEDS: PROPOFOL 10MG/ML 100ML 100 ML IV PRN ×2 (12:16→17:20)
[2023-06-07] MEDS: IPRATROPIUM/ALBUTEROL 0.5-3(2.5)MG/3ML NEB HHN SCH ×2 (14:11→20:19)
[2023-06-07] MEDS: VANCOMYCIN 1G PREMIX 200 ML IV SCH (17:19)
[2023-06-08] VITALS (62 sets, daily range): BP systolic 91–179; BP diastolic 54–107; PULSE 58–140; RESP 9–22; TEMP 97.6–98.9; O2SAT 99
[2023-06-08] MEDS: PROPOFOL 10MG/ML 100ML 100 ML IV PRN ×2 (00:59→05:53)
[2023-06-08] MEDS: MEROPENEM 1,000 MG in SODIUM CHLORIDE 0.9% 100 ML IV SCH ×3 (01:00→17:13)
[2023-06-08] MEDS: IPRATROPIUM/ALBUTEROL 0.5-3(2.5)MG/3ML NEB HHN SCH ×5 (02:04→20:43)
[2023-06-08 05:41] LABS: BASOPHILS % 0.2 % (0.0-2.0); EOSINOPHILS % 0.4 % (0.0-5.0); HEMATOCRIT. 26.2 % (42.0-52.0); HEMOGLOBIN. 8.3 g/dL (14.0-18.0); LYMPHOCYTES % 14.5 % (20.0-50.0); MEAN CORPUSCULAR HEMOGLOBIN 28.4 pg (28.0-32.0); MEAN CORPUSCULAR HGB CONC 31.8 g/dL (31.0-37.0); MEAN CORPUSCULAR VOLUME 89.2 fL (80.0-94.0); MEAN PLATELET VOLUME 6.2 fl (7.4-10.4); MONOCYTES % 6.2 % (2.0-8.0); NEUTROPHILS % 78.7 % (40.0-76.0); RED BLOOD CELL COUNT 2.94 mill/uL (4.7-6.1); RED CELL DISTRIBUTION WIDTH 15.7 % (11.6-14.6); WHITE BLOOD COUNT 12.9 x1000/uL (4.5-11.0)
[2023-06-08] MEDS: BLOOD SUGAR DIAGNOSTIC STRIP TEST SCH ×3 (05:54→17:55)
[2023-06-08] MEDS: INSULIN LISPRO 100 UNITS/ML SUBCUT SCH ×4 (05:54→23:42)
[2023-06-08 06:07] LABS: DIFFERENTIAL COMMENT 1; PLATELET 1016 x1000/uL (130-400)
[2023-06-08 08:53] LABS: BG BASE EXCESS 3.3 mmol/L (-2.0-2.0); BG CARBOXYHEMOGLOBIN 0.3 % (0.5-1.5); BG DEOXYHEMOGLOBIN 1.3 % (0.0-5.0); BG FRACTION INSPIRED OXYGEN 40; BG HCO3 ACT 26.7 mmol/L (22.0-26.0); BG METHEMOGLOBIN 0.3 % (0.0-1.5); BG OXYGEN SATURATION 98.7 % (92.0-98.5); BG OXYHEMOGLOBIN 98.1 % (94.0-97.0); BG PCO2 35.5 mmHg (35.0-45.0); BG PH 7.494 (7.350-7.450); BG PO2 139.8 mmHg (75.0-100.0); BG SAMPLE SITE RIGHT RADIAL; BG TOTAL HEMOGLOBIN 8.6 g/dL (12.0-18.0); BG VENT MODE VENT - AC
[2023-06-08] MEDS: PANTOPRAZOLE SODIUM 40 MG/VIAL IV SCH (08:53)
[2023-06-08] MEDS: DEXT 5%/0.9% NACL 1,000 ML IV SCH (08:53)
[2023-06-08 09:04] LABS: CALCIUM 7.1 mg/dL (8.7-10.4); CARBON DIOXIDE 28 mEq/L (21-32); CHLORIDE 110 mEq/L (98-107); CREATININE 0.7 mg/dL (0.6-1.3); GLUCOSE 245 mg/dL (70-105); POTASSIUM 3.9 mEq/L (3.5-5.1); SODIUM 143 mEq/L (136-145); TRIGLYCERIDE 65 mg/dL (0-150); UREA NITROGEN BLOOD 9 mg/dL (9-23)
[2023-06-08] MEDS: VANCOMYCIN 1G PREMIX 200 ML IV SCH (11:31)
[2023-06-08 11:37] LABS: BG BASE EXCESS 4.9 mmol/L (-2.0-2.0); BG CARBOXYHEMOGLOBIN 0.3 % (0.5-1.5); BG FRACTION INSPIRED OXYGEN 40; BG HCO3 ACT 28.2 mmol/L (22.0-26.0); BG OXYHEMOGLOBIN 97.7 % (94.0-97.0); BG PCO2 36.3 mmHg (35.0-45.0); BG PH 7.508 (7.350-7.450); BG PO2 106.8 mmHg (75.0-100.0); BG SAMPLE SITE RIGHT RADIAL; BG VENT MODE VENT - CPAP
[2023-06-08] MEDS: MORPHINE SULFATE 4 MG/ML CPJ (NOT FOR IM USE) IV PRN (15:32)
[2023-06-08] MEDS: AMLODIPINE 10MG TABLET PO SCH (19:05)
[2023-06-08 22:17] LABS: PLATELET 1084 x1000/uL (130-400)
[2023-06-09] VITALS (34 sets, daily range): BP systolic 118–158; BP diastolic 54–129; PULSE 68–103; RESP 9–21; TEMP 98.4–98.8; O2SAT 97–100
[2023-06-09] MEDS: IPRATROPIUM/ALBUTEROL 0.5-3(2.5)MG/3ML NEB HHN SCH ×4 (01:03→19:42)
[2023-06-09] MEDS: MEROPENEM 1,000 MG in SODIUM CHLORIDE 0.9% 100 ML IV SCH ×3 (01:33→17:30)
[2023-06-09] MEDS: MORPHINE SULFATE 4 MG/ML CPJ (NOT FOR IM USE) IV PRN ×3 (01:54→19:52)
[2023-06-09 03:21] LABS: CALCIUM 7.4 mg/dL (8.7-10.4); CARBON DIOXIDE 30 mEq/L (21-32); CHLORIDE 110 mEq/L (98-107); CREATININE 0.6 mg/dL (0.6-1.3); GLUCOSE 152 mg/dL (70-105); POTASSIUM 3.9 mEq/L (3.5-5.1); SODIUM 144 mEq/L (136-145); UREA NITROGEN BLOOD 9 mg/dL (9-23)
[2023-06-09] MEDS: BLOOD SUGAR DIAGNOSTIC STRIP TEST SCH ×4 (06:00→18:43)
[2023-06-09] MEDS: VANCOMYCIN 1G PREMIX 200 ML IV SCH (06:19)
[2023-06-09] MEDS: PANTOPRAZOLE SODIUM 40 MG/VIAL IV SCH (09:02)
[2023-06-09] MEDS: AMLODIPINE 10MG TABLET PO SCH (09:03)
[2023-06-09] MEDS: MULTIVITAMINS,THER W-MINERALS TABLET PO SCH (09:03)
[2023-06-09] MEDS: INSULIN LISPRO 100 UNITS/ML SUBCUT SCH ×2 (12:00→18:00)
[2023-06-09] MEDS: RISPERIDONE 0.5MG TABLET PO SCH (17:00)
[2023-06-09] MEDS ORDERED: MORPHINE SULFATE 4 MG/ML CPJ (NOT FOR IM USE) IV PRN (21:45)
[2023-06-10] VITALS (18 sets, daily range): BP systolic 111–146; BP diastolic 64–117; PULSE 81–93; RESP 11–18; TEMP 98.1–99.5; O2SAT 96
[2023-06-10] MEDS: VANCOMYCIN 1G PREMIX 200 ML IV SCH ×2 (00:18→18:00)
[2023-06-10] MEDS: BLOOD SUGAR DIAGNOSTIC STRIP TEST SCH ×5 (00:37→22:54)
[2023-06-10] MEDS: MEROPENEM 1,000 MG in SODIUM CHLORIDE 0.9% 100 ML IV SCH ×3 (01:19→18:35)
[2023-06-10] MEDS: IPRATROPIUM/ALBUTEROL 0.5-3(2.5)MG/3ML NEB HHN SCH (02:03)
[2023-06-10 05:25] LABS: BASOPHILS % 0.8 % (0.0-2.0); EOSINOPHILS % 1.4 % (0.0-5.0); HEMATOCRIT. 25.8 % (42.0-52.0); HEMOGLOBIN. 8.5 g/dL (14.0-18.0); MEAN CORPUSCULAR HEMOGLOBIN 29.5 pg (28.0-32.0); MEAN CORPUSCULAR HGB CONC 32.9 g/dL (31.0-37.0); MEAN CORPUSCULAR VOLUME 89.8 fL (80.0-94.0); MEAN PLATELET VOLUME 6.3 fl (7.4-10.4); MONOCYTES % 6.2 % (2.0-8.0); NEUTROPHILS % 77.6 % (40.0-76.0); PLATELET 754 x1000/uL (130-400); RED BLOOD CELL COUNT 2.88 mill/uL (4.7-6.1); WHITE BLOOD COUNT 14.4 x1000/uL (4.5-11.0)
[2023-06-10 05:32] LABS: CALCIUM 7.7 mg/dL (8.7-10.4); CARBON DIOXIDE 31 mEq/L (21-32); CHLORIDE 107 mEq/L (98-107); CREATININE 0.6 mg/dL (0.6-1.3); GLUCOSE 219 mg/dL (70-105); SODIUM 143 mEq/L (136-145); UREA NITROGEN BLOOD 9 mg/dL (9-23)
[2023-06-10] MEDS: INSULIN LISPRO 100 UNITS/ML SUBCUT SCH ×5 (06:35→23:00)
[2023-06-10] MEDS: MULTIVITAMINS,THER W-MINERALS TABLET PO SCH (09:39)
[2023-06-10] MEDS: AMLODIPINE 10MG TABLET PO SCH (09:39)
[2023-06-10] MEDS: PANTOPRAZOLE SODIUM 40 MG/VIAL IV SCH (09:39)
[2023-06-10] MEDS: RISPERIDONE 0.5MG TABLET PO SCH ×2 (09:39→17:00)
[2023-06-10] MEDS ORDERED: HYDROCODONE/ACETAMINOPHEN 5/325MG TABLET PO PRN (11:00)
[2023-06-11] VITALS (15 sets, daily range): BP systolic 134–160; BP diastolic 74–99; PULSE 71–101; RESP 11–20; TEMP 95–98.2; O2SAT 93–98
[2023-06-11] MEDS: BLOOD SUGAR DIAGNOSTIC STRIP TEST SCH ×4 (05:06→23:13)
[2023-06-11] MEDS: INSULIN LISPRO 100 UNITS/ML SUBCUT SCH ×4 (05:21→23:20)
[2023-06-11] MEDS: AMLODIPINE 10MG TABLET PO SCH (08:04)
[2023-06-11] MEDS: RISPERIDONE 0.5MG TABLET PO SCH (08:04)
[2023-06-11] MEDS: MULTIVITAMINS,THER W-MINERALS TABLET PO SCH (08:05)
[2023-06-11] MEDS: PANTOPRAZOLE SODIUM 40 MG/VIAL IV SCH (08:05)
[2023-06-11] MEDS: IPRATROPIUM/ALBUTEROL 0.5-3(2.5)MG/3ML NEB HHN SCH ×3 (09:00→21:05)
[2023-06-11] MEDS ORDERED: MORPHINE SULFATE 2 MG/ML CPJ (NOT FOR IM USE) IV PRN (15:30)
[2023-06-11 18:34] LABS: AMMONIA 35 uMol/L (<32)
[2023-06-12] VITALS (13 sets, daily range): BP systolic 124–160; BP diastolic 60–90; PULSE 78–96; RESP 15–22; TEMP 97–98; O2SAT 97–100
[2023-06-12] MEDS: IPRATROPIUM/ALBUTEROL 0.5-3(2.5)MG/3ML NEB HHN SCH ×2 (01:13→08:37)
[2023-06-12] MEDS: BLOOD SUGAR DIAGNOSTIC STRIP TEST SCH ×3 (05:49→18:00)
[2023-06-12] MEDS: INSULIN LISPRO 100 UNITS/ML SUBCUT SCH ×3 (05:49→18:05)
[2023-06-12 06:43] LABS: BASOPHILS % 0.5 % (0.0-2.0); HEMATOCRIT. 26.5 % (42.0-52.0); LYMPHOCYTES % 12.1 % (20.0-50.0); MEAN CORPUSCULAR HEMOGLOBIN 29.6 pg (28.0-32.0); MEAN CORPUSCULAR HGB CONC 34.1 g/dL (31.0-37.0); MEAN CORPUSCULAR VOLUME 86.8 fL (80.0-94.0); MEAN PLATELET VOLUME 6.6 fl (7.4-10.4); MONOCYTES % 5.2 % (2.0-8.0); NEUTROPHILS % 81.2 % (40.0-76.0); PLATELET 556 x1000/uL (130-400); RED BLOOD CELL COUNT 3.05 mill/uL (4.7-6.1); RED CELL DISTRIBUTION WIDTH 16.1 % (11.6-14.6); WHITE BLOOD COUNT 15.7 x1000/uL (4.5-11.0)
[2023-06-12 07:34] LABS: CALCIUM 7.7 mg/dL (8.7-10.4); CARBON DIOXIDE 30 mEq/L (21-32); CHLORIDE 104 mEq/L (98-107); CREATININE 0.6 mg/dL (0.6-1.3); GLUCOSE 171 mg/dL (70-105); POTASSIUM 3.8 mEq/L (3.5-5.1); SODIUM 139 mEq/L (136-145); UREA NITROGEN BLOOD 14 mg/dL (9-23)
[2023-06-12] MEDS: PANTOPRAZOLE SODIUM 40 MG/VIAL IV SCH (08:40)
[2023-06-12] MEDS: MULTIVITAMINS,THER W-MINERALS TABLET PO SCH (08:47)
[2023-06-12] MEDS: AMLODIPINE 10MG TABLET PO SCH (08:48)
[2023-06-13] VITALS (13 sets, daily range): BP systolic 113–164; BP diastolic 80–112; PULSE 68–103; RESP 12–20; TEMP 97.1–97.7
[2023-06-13] MEDS: BLOOD SUGAR DIAGNOSTIC STRIP TEST SCH ×4 (00:57→17:15)
[2023-06-13] MEDS: INSULIN LISPRO 100 UNITS/ML SUBCUT SCH ×5 (06:00→17:33)
[2023-06-13] MEDS: IPRATROPIUM/ALBUTEROL 0.5-3(2.5)MG/3ML NEB HHN SCH (07:37)
[2023-06-13] MEDS: MULTIVITAMINS,THER W-MINERALS TABLET PO SCH (08:36)
[2023-06-13] MEDS: PANTOPRAZOLE SODIUM 40 MG/VIAL IV SCH (08:36)
[2023-06-13] MEDS: AMLODIPINE 10MG TABLET PO SCH (08:36)
[2023-06-14] VITALS (10 sets, daily range): BP systolic 93–167; BP diastolic 48–95; PULSE 70–90; RESP 13–19; TEMP 97.6–98.6
[2023-06-14] MEDS: BLOOD SUGAR DIAGNOSTIC STRIP TEST SCH ×4 (00:11→17:20)
[2023-06-14] MEDS: INSULIN LISPRO 100 UNITS/ML SUBCUT SCH ×3 (00:14→17:19)
[2023-06-14] MEDS: PANTOPRAZOLE SODIUM 40 MG/VIAL IV SCH (09:00)
[2023-06-14] MEDS: MULTIVITAMINS,THER W-MINERALS TABLET PO SCH (11:16)
[2023-06-14] MEDS: AMLODIPINE 10MG TABLET PO SCH (11:17)
[2023-06-14] MEDS ORDERED: CEFAZOLIN 1000MG PREMIX 50 ML IV ONE (13:45)
[2023-06-15] VITALS (11 sets, daily range): BP systolic 113–150; BP diastolic 70–107; PULSE 76–90; RESP 13–20; TEMP 97.9–101
[2023-06-15] MEDS: BLOOD SUGAR DIAGNOSTIC STRIP TEST SCH ×4 (00:49→17:23)
[2023-06-15] MEDS: INSULIN LISPRO 100 UNITS/ML SUBCUT SCH ×4 (00:49→17:23)
[2023-06-15 03:21] LABS: BASOPHILS % 0.7 % (0.0-2.0); EOSINOPHILS % 1.4 % (0.0-5.0); HEMATOCRIT. 24.7 % (42.0-52.0); HEMOGLOBIN. 8.2 g/dL (14.0-18.0); LYMPHOCYTES % 15.7 % (20.0-50.0); MEAN CORPUSCULAR HEMOGLOBIN 28.6 pg (28.0-32.0); MEAN CORPUSCULAR HGB CONC 33.1 g/dL (31.0-37.0); MEAN CORPUSCULAR VOLUME 86.5 fL (80.0-94.0); MEAN PLATELET VOLUME 6.5 fl (7.4-10.4); MONOCYTES % 6.9 % (2.0-8.0); NEUTROPHILS % 75.3 % (40.0-76.0); PLATELET 417 x1000/uL (130-400); RED BLOOD CELL COUNT 2.86 mill/uL (4.7-6.1); RED CELL DISTRIBUTION WIDTH 15.7 % (11.6-14.6); WHITE BLOOD COUNT 12.6 x1000/uL (4.5-11.0)
[2023-06-15 03:34] LABS: ALANINE AMINOTRANSFERASE 12 IU/L (10-49); ALBUMIN 2.5 g/dL (3.2-4.8); ASPARTATE AMINOTRANSFERASE 17 IU/L (<34); BILIRUBIN TOTAL 0.6 mg/dL (0.1-1.0); CALCIUM 7.7 mg/dL (8.7-10.4); CARBON DIOXIDE 29 mEq/L (21-32); CHLORIDE 103 mEq/L (98-107); CREATININE 0.6 mg/dL (0.6-1.3); GLUCOSE 196 mg/dL (70-105); POTASSIUM 3.8 mEq/L (3.5-5.1); PROTEIN TOTAL 6.4 g/dL (6.0-8.3); SODIUM 137 mEq/L (136-145); UREA NITROGEN BLOOD 15 mg/dL (9-23)
[2023-06-15 03:39] LABS: INR 1.2
[2023-06-15] MEDS: PANTOPRAZOLE SODIUM 40 MG/VIAL IV SCH (08:39)
[2023-06-15] MEDS: AMLODIPINE 10MG TABLET PO SCH (08:44)
[2023-06-15] MEDS: MULTIVITAMINS,THER W-MINERALS TABLET PO SCH (08:45)
[2023-06-15] MEDS ORDERED: CEFAZOLIN 1000MG PREMIX 50 ML IV SCH (09:00)
[2023-06-15] MEDS ORDERED: HYDROMORPHONE HCL/PF 2MG/ML CPJ IV PRN (10:45)
[2023-06-15] MEDS ORDERED: LABETALOL 5MG/ML SYR 20 MG/4 ML SYRINGE IV PRN (10:45)
[2023-06-15] MEDS ORDERED: ONDANSETRON HCL 4MG/2ML INJ IV PRN (10:45)
[2023-06-15] MEDS ORDERED: MEPERIDINE HCL/PF 25MG/ML CPJ IV PRN (10:45)
[2023-06-15] MEDS ORDERED: NALOXONE HCL 0.4MG/ML VIAL IV PRN (12:45)
[2023-06-15] MEDS: ACETAMINOPHEN 650MG/20.3ML UDC PO PRN (17:23)
[2023-06-15] MEDS ORDERED: MORPHINE SULFATE 2 MG/ML CPJ (NOT FOR IM USE) IV PRN (18:45)
[2023-06-15] MEDS ORDERED: DEXT 5%/0.45% NACL 1000ML 1,000 ML IV ONE (20:00)
[2023-06-15] MEDS: RISPERIDONE 0.5MG TABLET PO SCH ×2 (21:00→22:06)
[2023-06-16] VITALS (11 sets, daily range): BP systolic 122–161; BP diastolic 80–99; PULSE 74–97; RESP 13–28; TEMP 97.7–99.9
[2023-06-16] MEDS: BLOOD SUGAR DIAGNOSTIC STRIP TEST SCH ×5 (00:56→23:03)
[2023-06-16] MEDS: INSULIN LISPRO 100 UNITS/ML SUBCUT SCH ×5 (00:56→23:10)
[2023-06-16] MEDS: METOCLOPRAMIDE HCL 10MG/2ML VIAL IV SCH ×4 (05:21→23:10)
[2023-06-16] MEDS: AMLODIPINE 10MG TABLET PO SCH (08:21)
[2023-06-16] MEDS: PANTOPRAZOLE SODIUM 40 MG/VIAL IV SCH (08:22)
[2023-06-16] MEDS: MULTIVITAMINS,THER W-MINERALS TABLET PO SCH (08:22)
[2023-06-16] MEDS ORDERED: RISPERIDONE 0.5MG TABLET PO SCH (17:00)
[2023-06-16 22:14] LABS: CLARITY URINE CLEAR (CLEAR); COLOR URINE YELLOW (YELLOW); GLUCOSE URINE 1+ (NEGATIVE); KETONES URINE 1+ (NEGATIVE); LEUKOCYTE ESTERASE URINE NEGATIVE (NEGATIVE); NITRITE URINE NEGATIVE (NEGATIVE); OCCULT BLOOD URINE 3+ (NEGATIVE); PROTEIN URINE 1+ (NEGATIVE); SPECIFIC GRAVITY URINE 1.016 (1.005-1.030)
[2023-06-16 22:32] LABS: BACTERIA URINE TRACE; RBC URINE 15-25 /hpf (0-2); SQUAMOUS EPITHELIAL CELL URINE FEW /lpf (RARE/1+); WBC URINE 0-2 /hpf (0-2); YEAST URINE RARE
[2023-06-16] MEDS: MEROPENEM 1,000 MG in SODIUM CHLORIDE 0.9% 100 ML IV SCH (22:36)
[2023-06-17] VITALS (7 sets, daily range): BP systolic 111–143; BP diastolic 73–98; PULSE 81–98; RESP 6–20; TEMP 97.6–98
[2023-06-17] MEDS: HYDROCODONE/ACETAMINOPHEN 5/325MG TABLET PO PRN (04:08)
[2023-06-17] MEDS: BLOOD SUGAR DIAGNOSTIC STRIP TEST SCH ×4 (05:24→23:36)
[2023-06-17] MEDS: INSULIN LISPRO 100 UNITS/ML SUBCUT SCH ×4 (05:33→23:35)
[2023-06-17] MEDS: MEROPENEM 1,000 MG in SODIUM CHLORIDE 0.9% 100 ML IV SCH ×3 (05:34→23:34)
[2023-06-17] MEDS: METOCLOPRAMIDE HCL 10MG/2ML VIAL IV SCH ×4 (05:34→23:35)
[2023-06-17] MEDS: AMLODIPINE 10MG TABLET PO SCH (09:06)
[2023-06-17] MEDS: PANTOPRAZOLE SODIUM 40 MG/VIAL IV SCH (09:06)
[2023-06-17] MEDS: MULTIVITAMINS,THER W-MINERALS TABLET PO SCH (09:06)
[2023-06-17 13:17] LABS: BASOPHILS % 0.5 % (0.0-2.0); EOSINOPHILS % 1.1 % (0.0-5.0); HEMATOCRIT. 25.2 % (42.0-52.0); HEMOGLOBIN. 8.3 g/dL (14.0-18.0); LYMPHOCYTES % 14.9 % (20.0-50.0); MEAN CORPUSCULAR HEMOGLOBIN 29.1 pg (28.0-32.0); MEAN CORPUSCULAR VOLUME 88.1 fL (80.0-94.0); MEAN PLATELET VOLUME 6.6 fl (7.4-10.4); MONOCYTES % 6.6 % (2.0-8.0); NEUTROPHILS % 76.9 % (40.0-76.0); PLATELET 452 x1000/uL (130-400); RED BLOOD CELL COUNT 2.86 mill/uL (4.7-6.1); RED CELL DISTRIBUTION WIDTH 15.8 % (11.6-14.6); WHITE BLOOD COUNT 14.4 x1000/uL (4.5-11.0)
[2023-06-17 13:34] LABS: CARBON DIOXIDE 27 mEq/L (21-32); CHLORIDE 103 mEq/L (98-107); CREATININE 0.6 mg/dL (0.6-1.3); GLUCOSE 231 mg/dL (70-105); POTASSIUM 3.5 mEq/L (3.5-5.1); SODIUM 136 mEq/L (136-145); UREA NITROGEN BLOOD 11 mg/dL (9-23)
[2023-06-17] MEDS: RISPERIDONE 0.5MG TABLET PO SCH (17:06)
[2023-06-18] VITALS (11 sets, daily range): BP systolic 103–162; BP diastolic 69–92; PULSE 91–99; RESP 10–22; TEMP 97.1–99.8
[2023-06-18] MEDS: MEROPENEM 1,000 MG in SODIUM CHLORIDE 0.9% 100 ML IV SCH ×2 (06:14→16:03)
[2023-06-18] MEDS: INSULIN LISPRO 100 UNITS/ML SUBCUT SCH ×4 (06:14→23:50)
[2023-06-18] MEDS: BLOOD SUGAR DIAGNOSTIC STRIP TEST SCH ×4 (06:47→23:44)
[2023-06-18] MEDS: MULTIVITAMINS,THER W-MINERALS TABLET PO SCH (10:41)
[2023-06-18] MEDS: PANTOPRAZOLE SODIUM 40 MG/VIAL IV SCH (10:41)
[2023-06-18] MEDS: RISPERIDONE 0.5MG TABLET PO SCH (10:41)
[2023-06-18] MEDS: AMLODIPINE 10MG TABLET PO SCH (10:41)
[2023-06-18] MEDS ORDERED: VANCOMYCIN 1500MG in DEXTROSE 5% WATER 250ML IV NR (11:00)
[2023-06-18] MEDS: HYDROCODONE/ACETAMINOPHEN 5/325MG TABLET PO PRN ×2 (11:31→19:15)
[2023-06-18] MEDS: RISPERIDONE 1MG TABLET PO SCH (20:33)
[2023-06-19] VITALS: BP 123/72; PULSE 95; RESP 20; TEMP 98.4
[2023-06-19 04:00] VITALS: BP 96/67; PULSE 90; RESP 22; TEMP 97.5
[2023-06-19] MEDS: INSULIN LISPRO 100 UNITS/ML SUBCUT SCH ×4 (05:14→23:06)
[2023-06-19] MEDS: BLOOD SUGAR DIAGNOSTIC STRIP TEST SCH ×4 (05:14→23:04)
[2023-06-19] MEDS: VANCOMYCIN 1G PREMIX 200 ML IV SCH ×2 (05:14→23:06)
[2023-06-19 07:49] LABS: BASOPHILS % 1.1 % (0.0-2.0); EOSINOPHILS % 2.4 % (0.0-5.0); HEMATOCRIT. 26.4 % (42.0-52.0); HEMOGLOBIN. 8.8 g/dL (14.0-18.0); LYMPHOCYTES % 22.6 % (20.0-50.0); MEAN CORPUSCULAR HEMOGLOBIN 28.8 pg (28.0-32.0); MEAN CORPUSCULAR HGB CONC 33.2 g/dL (31.0-37.0); MEAN CORPUSCULAR VOLUME 86.9 fL (80.0-94.0); MEAN PLATELET VOLUME 6.7 fl (7.4-10.4); NEUTROPHILS % 66.9 % (40.0-76.0); PLATELET 519 x1000/uL (130-400); RED BLOOD CELL COUNT 3.04 mill/uL (4.7-6.1); RED CELL DISTRIBUTION WIDTH 15.8 % (11.6-14.6); WHITE BLOOD COUNT 13.1 x1000/uL (4.5-11.0)
[2023-06-19 08:00] VITALS: BP 110/66; PULSE 91; RESP 18; TEMP 97.3
[2023-06-19 08:35] LABS: CALCIUM 7.9 mg/dL (8.7-10.4); CARBON DIOXIDE 29 mEq/L (21-32); CHLORIDE 103 mEq/L (98-107); CREATININE 0.6 mg/dL (0.6-1.3); GLUCOSE 248 mg/dL (70-105); POTASSIUM 4.1 mEq/L (3.5-5.1); SODIUM 139 mEq/L (136-145); UREA NITROGEN BLOOD 17 mg/dL (9-23)
[2023-06-19] MEDS: AMLODIPINE 10MG TABLET PO SCH (09:00)
[2023-06-19] MEDS: RISPERIDONE 1MG TABLET PO SCH ×2 (09:13→21:07)
[2023-06-19] MEDS: PANTOPRAZOLE SODIUM 40 MG/VIAL IV SCH (09:13)
[2023-06-19] MEDS: MULTIVITAMINS,THER W-MINERALS TABLET PO SCH (09:14)
[2023-06-19 12:00] VITALS: BP 106/65; PULSE 89; RESP 18; TEMP 97.6
[2023-06-19 16:00] VITALS: BP 98/61; PULSE 95; RESP 18; TEMP 97.6
[2023-06-19 20:00] VITALS: BP 125/86; PULSE 111; RESP 20; TEMP 97.3
[2023-06-20] VITALS: BP 98/67; PULSE 105; RESP 22; TEMP 97.9
[2023-06-20 04:00] VITALS: BP 110/74; PULSE 98; RESP 22; TEMP 97.5
[2023-06-20] MEDS: BLOOD SUGAR DIAGNOSTIC STRIP TEST SCH ×4 (05:46→23:28)
[2023-06-20] MEDS: INSULIN LISPRO 100 UNITS/ML SUBCUT SCH ×4 (05:50→23:32)
[2023-06-20 08:00] VITALS: BP 155/88; PULSE 99; RESP 18; TEMP 97.1
[2023-06-20] MEDS: AMLODIPINE 10MG TABLET PO SCH (09:00)
[2023-06-20] MEDS: MULTIVITAMINS,THER W-MINERALS TABLET PO SCH (09:35)
[2023-06-20] MEDS: RISPERIDONE 1MG TABLET PO SCH ×2 (09:35→20:17)
[2023-06-20] MEDS: PANTOPRAZOLE SODIUM 40 MG/VIAL IV SCH (09:36)
[2023-06-20 09:45] LABS: BASOPHILS % 0.6 % (0.0-2.0); EOSINOPHILS % 1.7 % (0.0-5.0); HEMATOCRIT. 27.7 % (42.0-52.0); HEMOGLOBIN. 8.8 g/dL (14.0-18.0); LYMPHOCYTES % 20.8 % (20.0-50.0); MEAN CORPUSCULAR HEMOGLOBIN 28.1 pg (28.0-32.0); MEAN CORPUSCULAR HGB CONC 31.7 g/dL (31.0-37.0); MEAN CORPUSCULAR VOLUME 88.4 fL (80.0-94.0); MEAN PLATELET VOLUME 6.6 fl (7.4-10.4); MONOCYTES % 7.8 % (2.0-8.0); NEUTROPHILS % 69.1 % (40.0-76.0); PLATELET 547 x1000/uL (130-400); RED BLOOD CELL COUNT 3.13 mill/uL (4.7-6.1); RED CELL DISTRIBUTION WIDTH 15.9 % (11.6-14.6); WHITE BLOOD COUNT 13.4 x1000/uL (4.5-11.0)
[2023-06-20 09:58] LABS: CALCIUM 8.3 mg/dL (8.7-10.4); CARBON DIOXIDE 29 mEq/L (21-32); CHLORIDE 103 mEq/L (98-107); CREATININE 0.6 mg/dL (0.6-1.3); GLUCOSE 202 mg/dL (70-105); POTASSIUM 4.4 mEq/L (3.5-5.1); SODIUM 139 mEq/L (136-145); UREA NITROGEN BLOOD 23 mg/dL (9-23)
[2023-06-20 12:00] VITALS: BP 104/71; PULSE 92; RESP 20; TEMP 97.7
[2023-06-20] MEDS ORDERED: INSULIN GLARGINE 100 UNITS/ML SUBCUT NR (15:36)
[2023-06-20 16:00] VITALS: BP 112/70; PULSE 94; RESP 18; TEMP 97.1
[2023-06-20] MEDS: VANCOMYCIN 1G PREMIX 200 ML IV SCH (17:27)
[2023-06-20 20:00] VITALS: BP 104/65; PULSE 90; RESP 19; TEMP 100.2
[2023-06-20] MEDS: INSULIN GLARGINE 100 UNITS/ML SUBCUT SCH (20:18)
[2023-06-21 00:10] VITALS: BP 110/68; PULSE 87; RESP 19; TEMP 98.7
[2023-06-21 04:30] VITALS: BP 119/72; PULSE 83; RESP 19; TEMP 98.5
[2023-06-21] MEDS: BLOOD SUGAR DIAGNOSTIC STRIP TEST SCH ×3 (05:15→17:02)
[2023-06-21] MEDS: INSULIN LISPRO 100 UNITS/ML SUBCUT SCH ×3 (05:18→17:03)
[2023-06-21 08:00] VITALS: BP 132/81; PULSE 103; RESP 18; TEMP 97.7
[2023-06-21] MEDS: AMLODIPINE 10MG TABLET PO SCH (08:42)
[2023-06-21] MEDS: RISPERIDONE 1MG TABLET PO SCH ×2 (08:43→22:08)
[2023-06-21] MEDS: PANTOPRAZOLE SODIUM 40 MG/VIAL IV SCH (08:43)
[2023-06-21] MEDS: MULTIVITAMINS,THER W-MINERALS TABLET PO SCH (08:43)
[2023-06-21] MEDS: VANCOMYCIN 1G PREMIX 200 ML IV SCH (11:51)
[2023-06-21] MEDS: INSULIN GLARGINE 100 UNITS/ML SUBCUT SCH (11:51)
[2023-06-21 12:00] VITALS: BP 118/76; PULSE 100; RESP 18; TEMP 97.5
[2023-06-21 16:00] VITALS: BP 85/92; PULSE 98; RESP 18; TEMP 97.6
[2023-06-21 20:00] VITALS: BP 117/72; PULSE 93; RESP 20; TEMP 98.7
[2023-06-22] VITALS: BP 96/63; PULSE 84; RESP 18; TEMP 97.6
[2023-06-22] MEDS: BLOOD SUGAR DIAGNOSTIC STRIP TEST SCH ×4 (00:32→20:29)
[2023-06-22] MEDS: INSULIN LISPRO 100 UNITS/ML SUBCUT SCH ×4 (00:44→20:29)
[2023-06-22] MEDS: INSULIN GLARGINE 100 UNITS/ML SUBCUT SCH ×3 (00:45→22:09)
[2023-06-22 04:00] VITALS: BP 107/75; PULSE 95; RESP 18; TEMP 97.9
[2023-06-22] MEDS: VANCOMYCIN 1G PREMIX 200 ML IV SCH ×2 (05:24→22:13)
[2023-06-22] MEDS: RISPERIDONE 1MG TABLET PO SCH ×2 (08:24→22:00)
[2023-06-22] MEDS: MULTIVITAMINS,THER W-MINERALS TABLET PO SCH (08:24)
[2023-06-22] MEDS: PANTOPRAZOLE SODIUM 40 MG/VIAL IV SCH (08:24)
[2023-06-22 08:26] VITALS: BP_SYST 118; BP_SYST 137; BP_DIAS 72; BP_DIAS 86; PULSE 105; PULSE 86; RESP 20; TEMP 97.7; TEMP 97.9
[2023-06-22] MEDS: AMLODIPINE 10MG TABLET PO SCH (08:37)
[2023-06-22 12:43] VITALS: BP 97/57; PULSE 92; RESP 20; TEMP 98.1
[2023-06-22 16:00] VITALS: BP 103/70; PULSE 100; RESP 18; TEMP 99.8
[2023-06-22 20:00] VITALS: BP 111/69; PULSE 104; RESP 20; TEMP 98.8
[2023-06-23] VITALS: BP 115/63; PULSE 94; RESP 20; TEMP 98.6
[2023-06-23] MEDS: BLOOD SUGAR DIAGNOSTIC STRIP TEST SCH ×5 (00:52→23:49)
[2023-06-23 04:00] VITALS: BP 113/67; PULSE 94; RESP 20; TEMP 98.9
[2023-06-23] MEDS: INSULIN LISPRO 100 UNITS/ML SUBCUT SCH ×2 (05:57)
[2023-06-23] MEDS ORDERED: DEXTROSE 50% WATER 50ML SYRINGE IV PRN (06:00)
[2023-06-23 06:35] LABS: BASOPHILS % 0.7 % (0.0-2.0); EOSINOPHILS % 0.8 % (0.0-5.0); HEMATOCRIT. 25.9 % (42.0-52.0); HEMOGLOBIN. 8.8 g/dL (14.0-18.0); LYMPHOCYTES % 27.3 % (20.0-50.0); MEAN CORPUSCULAR HEMOGLOBIN 29.3 pg (28.0-32.0); MEAN CORPUSCULAR HGB CONC 33.9 g/dL (31.0-37.0); MEAN CORPUSCULAR VOLUME 86.4 fL (80.0-94.0); MEAN PLATELET VOLUME 6.6 fl (7.4-10.4); MONOCYTES % 6.8 % (2.0-8.0); NEUTROPHILS % 64.4 % (40.0-76.0); PLATELET 613 x1000/uL (130-400); RED CELL DISTRIBUTION WIDTH 16.3 % (11.6-14.6); WHITE BLOOD COUNT 12.6 x1000/uL (4.5-11.0)
[2023-06-23 08:13] VITALS: BP 95/69; PULSE 101; RESP 17; TEMP 98.5
[2023-06-23 08:24] LABS: CALCIUM 8.4 mg/dL (8.7-10.4); CARBON DIOXIDE 31 mEq/L (21-32); CHLORIDE 107 mEq/L (98-107); CREATININE 0.6 mg/dL (0.6-1.3); GLUCOSE 60 mg/dL (70-105); POTASSIUM 4.1 mEq/L (3.5-5.1); SODIUM 142 mEq/L (136-145); UREA NITROGEN BLOOD 26 mg/dL (9-23)
[2023-06-23] MEDS: PANTOPRAZOLE SODIUM 40 MG/VIAL IV SCH (08:47)
[2023-06-23] MEDS: AMLODIPINE 10MG TABLET PO SCH ×2 (08:47→08:48)
[2023-06-23] MEDS: MULTIVITAMINS,THER W-MINERALS TABLET PO SCH (08:48)
[2023-06-23] MEDS: RISPERIDONE 1MG TABLET PO SCH ×2 (08:48→20:29)
[2023-06-23] MEDS: INSULIN GLARGINE 100 UNITS/ML SUBCUT SCH (09:57)
[2023-06-23 12:15] VITALS: BP 112/70; PULSE 101; RESP 18; TEMP 97.6
[2023-06-23 16:00] VITALS: BP 99/64; PULSE 93; RESP 19; TEMP 98
[2023-06-23] MEDS: VANCOMYCIN 1G PREMIX 200 ML IV SCH (16:05)
[2023-06-23 20:00] VITALS: BP 101/69; PULSE 89; RESP 20; TEMP 98.5
[2023-06-24] VITALS: BP 95/62; PULSE 93; RESP 18; TEMP 98.7
[2023-06-24 04:00] VITALS: BP 101/58; PULSE 95; RESP 18; TEMP 97.8
[2023-06-24] MEDS: BLOOD SUGAR DIAGNOSTIC STRIP TEST SCH ×4 (06:00→21:00)
[2023-06-24 08:00] VITALS: BP 88/56; PULSE 97; RESP 19; TEMP 96.7
[2023-06-24] MEDS: PANTOPRAZOLE SODIUM 40 MG/VIAL IV SCH (08:56)
[2023-06-24] MEDS: RISPERIDONE 1MG TABLET PO SCH ×2 (08:57→21:00)
[2023-06-24] MEDS: MULTIVITAMINS,THER W-MINERALS TABLET PO SCH (08:58)
[2023-06-24] MEDS: AMLODIPINE 10MG TABLET PO SCH (08:59)
[2023-06-24] MEDS: VANCOMYCIN 1G PREMIX 200 ML IV SCH (11:00)
[2023-06-24 20:00] VITALS: BP 97/66; PULSE 105; RESP 18; TEMP 96.7
[2023-06-24] MEDS: INSULIN LISPRO 100 UNITS/ML SUBCUT SCH (21:00)
[2023-06-25] VITALS: BP 100/60; PULSE 104; RESP 18; TEMP 97.5
[2023-06-25 04:00] VITALS: BP 110/68; PULSE 109; RESP 18; TEMP 97.5
[2023-06-25] MEDS: VANCOMYCIN 1G PREMIX 200 ML IV SCH ×2 (05:08→22:58)
[2023-06-25] MEDS: BLOOD SUGAR DIAGNOSTIC STRIP TEST SCH ×8 (06:00→21:37)
[2023-06-25] MEDS: INSULIN LISPRO 100 UNITS/ML SUBCUT SCH ×4 (06:48→21:44)
[2023-06-25 08:00] VITALS: BP 99/66; PULSE 103; RESP 22; TEMP 99.3
[2023-06-25] MEDS: AMLODIPINE 10MG TABLET PO SCH (09:00)
[2023-06-25] MEDS: PANTOPRAZOLE SODIUM 40 MG/VIAL IV SCH (09:08)
[2023-06-25] MEDS: RISPERIDONE 1MG TABLET PO SCH ×2 (09:09→21:07)
[2023-06-25] MEDS: MULTIVITAMINS,THER W-MINERALS TABLET PO SCH (09:09)
[2023-06-25 12:00] VITALS: BP 99/67; PULSE 86; RESP 22; TEMP 100.9
[2023-06-25] MEDS: ACETAMINOPHEN 650MG/20.3ML UDC PO PRN (15:20)
[2023-06-25 16:00] VITALS: BP 99/70; PULSE 87; RESP 21; TEMP 99.7
[2023-06-25 20:00] VITALS: BP 90/60; PULSE 105; RESP 17; TEMP 96.5
[2023-06-26] VITALS: BP_SYST 102; BP_SYST 122; BP_DIAS 54; BP_DIAS 65; PULSE 103; PULSE 79; RESP 17; RESP 18; TEMP 96.5; TEMP 96.6
[2023-06-26 04:00] VITALS: BP 100/68; PULSE 116; RESP 17; TEMP 96.5
[2023-06-26] MEDS: INSULIN LISPRO 100 UNITS/ML SUBCUT SCH ×4 (06:49→21:00)
[2023-06-26] MEDS: BLOOD SUGAR DIAGNOSTIC STRIP TEST SCH ×4 (06:49→21:00)
[2023-06-26 07:53] LABS: BASOPHILS % 0.5 % (0.0-2.0); EOSINOPHILS % 0.1 % (0.0-5.0); HEMATOCRIT. 26.8 % (42.0-52.0); HEMOGLOBIN. 8.8 g/dL (14.0-18.0); LYMPHOCYTES % 12.4 % (20.0-50.0); MEAN CORPUSCULAR HEMOGLOBIN 28.7 pg (28.0-32.0); MEAN CORPUSCULAR HGB CONC 32.6 g/dL (31.0-37.0); MEAN CORPUSCULAR VOLUME 87.8 fL (80.0-94.0); MEAN PLATELET VOLUME 6.8 fl (7.4-10.4); MONOCYTES % 4.7 % (2.0-8.0); NEUTROPHILS % 82.3 % (40.0-76.0); PLATELET 656 x1000/uL (130-400); RED BLOOD CELL COUNT 3.05 mill/uL (4.7-6.1); RED CELL DISTRIBUTION WIDTH 15.7 % (11.6-14.6); WHITE BLOOD COUNT 22.2 x1000/uL (4.5-11.0)
[2023-06-26 08:00] VITALS: BP 96/68; PULSE 119; RESP 29; TEMP 100.2
[2023-06-26] MEDS: AMLODIPINE 10MG TABLET PO SCH (09:00)
[2023-06-26] MEDS: RISPERIDONE 1MG TABLET PO SCH ×2 (09:01→21:00)
[2023-06-26] MEDS: MULTIVITAMINS,THER W-MINERALS TABLET PO SCH (09:01)
[2023-06-26] MEDS: PANTOPRAZOLE SODIUM 40 MG/VIAL IV SCH (09:01)
[2023-06-26 09:19] LABS: CALCIUM 8.6 mg/dL (8.7-10.4); CARBON DIOXIDE 27 mEq/L (21-32); CHLORIDE 109 mEq/L (98-107); CREATININE 0.8 mg/dL (0.6-1.3); POTASSIUM 4.1 mEq/L (3.5-5.1); SODIUM 145 mEq/L (136-145); UREA NITROGEN BLOOD 37 mg/dL (9-23)
[2023-06-26 09:25] LABS: GLUCOSE 346 mg/dL (70-105)
[2023-06-26 10:18] LABS: BG BASE EXCESS 5.5 mmol/L (-2.0-2.0); BG CARBOXYHEMOGLOBIN 0.3 % (0.5-1.5); BG DEOXYHEMOGLOBIN 4.3 % (0.0-5.0); BG FRACTION INSPIRED OXYGEN 21; BG HCO3 ACT 27.5 mmol/L (22.0-26.0); BG METHEMOGLOBIN 0.1 % (0.0-1.5); BG OXYGEN SATURATION 95.7 % (92.0-98.5); BG OXYHEMOGLOBIN 95.3 % (94.0-97.0); BG PCO2 30.7 mmHg (35.0-45.0); BG PO2 75.3 mmHg (75.0-100.0); BG SAMPLE SITE RIGHT RADIAL; BG VENT MODE ROOM AIR
[2023-06-26] MEDS: PIPERACILLIN/TAZOBACTAM 3.375 G in DEXTROSE 5% WATER 50 ML IV SCH ×3 (11:02→21:55)
[2023-06-26 12:00] VITALS: BP 91/66; PULSE 115; RESP 24; TEMP 101.8
[2023-06-26 16:00] VITALS: BP 95/64; PULSE 117; RESP 23; TEMP 102.2
[2023-06-26] MEDS: VANCOMYCIN 1G PREMIX 200 ML IV SCH (18:05)
[2023-06-26 20:00] VITALS: BP 100/72; PULSE 120; RESP 17; TEMP 97.5
[2023-06-27] VITALS (10 sets, daily range): BP systolic 82–108; BP diastolic 60–72; PULSE 108–124; RESP 17–28; TEMP 97.3–98.2
[2023-06-27] MEDS ORDERED: SODIUM CHLORIDE 0.9% 1000ML BAG (SEPSIS BOLUS) IV NR (01:45)
[2023-06-27] MEDS: PIPERACILLIN/TAZOBACTAM 3.375 G in DEXTROSE 5% WATER 50 ML IV SCH ×3 (05:32→23:28)
[2023-06-27] MEDS: BLOOD SUGAR DIAGNOSTIC STRIP TEST SCH ×4 (07:14→21:42)
[2023-06-27] MEDS: INSULIN LISPRO 100 UNITS/ML SUBCUT SCH ×4 (07:15→21:41)
[2023-06-27] MEDS: RISPERIDONE 1MG TABLET PO SCH ×2 (08:29→21:23)
[2023-06-27] MEDS: ACETAMINOPHEN 650MG/20.3ML UDC PO PRN ×2 (08:30→23:28)
[2023-06-27] MEDS: AMLODIPINE 10MG TABLET PO SCH (08:30)
[2023-06-27] MEDS: MULTIVITAMINS,THER W-MINERALS TABLET PO SCH (08:30)
[2023-06-27] MEDS: PANTOPRAZOLE SODIUM 40 MG/VIAL IV SCH (08:30)
[2023-06-27] MEDS: VANCOMYCIN 1G PREMIX 200 ML IV SCH (13:05)
[2023-06-27 18:11] LABS: HEPATITIS B SURFACE ANTIGEN NEGATIVE; HEPATITIS C VIR.AB 0.14 INDEXVAL (0.00-0.80)
[2023-06-27] MEDS: MIDODRINE HCL 5MG TABLET PO SCH (21:22)
[2023-06-27] MEDS: INSULIN GLARGINE 100 UNITS/ML SUBCUT SCH (23:28)
[2023-06-28] VITALS (13 sets, daily range): BP systolic 82–97; BP diastolic 57–68; PULSE 87–121; RESP 11–32; TEMP 99–100.2
[2023-06-28] MEDS: VANCOMYCIN 1G PREMIX 200 ML IV SCH (05:40)
[2023-06-28] MEDS: PIPERACILLIN/TAZOBACTAM 3.375 G in DEXTROSE 5% WATER 50 ML IV SCH ×3 (07:27→21:28)
[2023-06-28 08:00] LABS: CALCIUM 7.9 mg/dL (8.7-10.4); CARBON DIOXIDE 29 mEq/L (21-32); CHLORIDE 116 mEq/L (98-107); CREATININE 1.2 mg/dL (0.6-1.3); GLUCOSE 267 mg/dL (70-105); PHOSPHORUS 3.1 mg/dL (2.5-4.9); POTASSIUM 3.9 mEq/L (3.5-5.1); SODIUM 153 mEq/L (136-145); UREA NITROGEN BLOOD 52 mg/dL (9-23)
[2023-06-28 08:02] LABS: BASOPHILS % 0.3 % (0.0-2.0); HEMATOCRIT. 21.5 % (42.0-52.0); HEMOGLOBIN. 7.1 g/dL (14.0-18.0); LYMPHOCYTES % 15.9 % (20.0-50.0); MEAN CORPUSCULAR HEMOGLOBIN 29.7 pg (28.0-32.0); MEAN PLATELET VOLUME 7.4 fl (7.4-10.4); MONOCYTES % 5.6 % (2.0-8.0); NEUTROPHILS % 78.2 % (40.0-76.0); PLATELET 559 x1000/uL (130-400); RED BLOOD CELL COUNT 2.39 mill/uL (4.7-6.1); RED CELL DISTRIBUTION WIDTH 16.6 % (11.6-14.6); WHITE BLOOD COUNT 24.5 x1000/uL (4.5-11.0)
[2023-06-28] MEDS: BLOOD SUGAR DIAGNOSTIC STRIP TEST SCH ×4 (08:25→20:49)
[2023-06-28] MEDS: AMLODIPINE 10MG TABLET PO SCH (08:25)
[2023-06-28] MEDS: PANTOPRAZOLE SODIUM 40 MG/VIAL IV SCH (08:41)
[2023-06-28] MEDS: INSULIN LISPRO 100 UNITS/ML SUBCUT SCH ×4 (08:41→20:49)
[2023-06-28] MEDS: MIDODRINE HCL 5MG TABLET PO SCH ×3 (08:42→17:54)
[2023-06-28] MEDS: MULTIVITAMINS,THER W-MINERALS TABLET PO SCH (08:42)
[2023-06-28] MEDS: RISPERIDONE 1MG TABLET PO SCH ×2 (08:42→20:39)
[2023-06-28] MEDS: INSULIN GLARGINE 100 UNITS/ML SUBCUT SCH ×2 (11:10→23:00)
[2023-06-28] MEDS: ACETAMINOPHEN 650MG/20.3ML UDC PO PRN (12:34)
[2023-06-28] MEDS: DEXTROSE 5% WATER 1,000 ML IV SCH (14:47)
[2023-06-28] MEDS ORDERED: DAPTOMYCIN 500 MG in SODIUM CHLORIDE 0.9% 50 ML IV SCH (20:00)
[2023-06-28 21:51] LABS: CREATINE KINASE 303 IU/L (46-171)
[2023-06-29] VITALS (12 sets, daily range): BP systolic 77–92; BP diastolic 56–68; PULSE 81–104; RESP 5–26; TEMP 97.9–100.4
[2023-06-29] MEDS: PIPERACILLIN/TAZOBACTAM 3.375 G in DEXTROSE 5% WATER 50 ML IV SCH ×3 (05:18→21:14)
[2023-06-29 06:03] LABS: HEMATOCRIT. 29.9 % (42.0-52.0); HEMOGLOBIN. 9.3 g/dL (14.0-18.0); MEAN CORPUSCULAR HEMOGLOBIN 28.8 pg (28.0-32.0); MEAN CORPUSCULAR HGB CONC 31.2 g/dL (31.0-37.0); MEAN CORPUSCULAR VOLUME 92.2 fL (80.0-94.0); MEAN PLATELET VOLUME 7.7 fl (7.4-10.4); PLATELET 483 x1000/uL (130-400); RED BLOOD CELL COUNT 3.24 mill/uL (4.7-6.1); RED CELL DISTRIBUTION WIDTH 17.2 % (11.6-14.6); WHITE BLOOD COUNT 31.3 x1000/uL (4.5-11.0)
[2023-06-29 06:13] LABS: CALCIUM 7.8 mg/dL (8.7-10.4); CARBON DIOXIDE 29 mEq/L (21-32); CHLORIDE 118 mEq/L (98-107); CREATININE 1.2 mg/dL (0.6-1.3); GLUCOSE 161 mg/dL (70-105); POTASSIUM 3.7 mEq/L (3.5-5.1); UREA NITROGEN BLOOD 62 mg/dL (9-23)
[2023-06-29 06:58] LABS: DIFFERENTIAL COMMENT 1
[2023-06-29] MEDS: BLOOD SUGAR DIAGNOSTIC STRIP TEST SCH ×4 (07:30→21:00)
[2023-06-29 08:18] LABS: SODIUM 156 mEq/L (136-145)
[2023-06-29] MEDS: MULTIVITAMINS,THER W-MINERALS TABLET PO SCH (08:40)
[2023-06-29] MEDS: AMLODIPINE 10MG TABLET PO SCH (08:40)
[2023-06-29] MEDS: MIDODRINE HCL 5MG TABLET PO SCH ×3 (08:40→17:24)
[2023-06-29] MEDS: PANTOPRAZOLE SODIUM 40 MG/VIAL IV SCH (08:41)
[2023-06-29] MEDS: RISPERIDONE 1MG TABLET PO SCH (08:41)
[2023-06-29] MEDS: DEXTROSE 5% WATER 1,000 ML IV SCH ×2 (08:52→17:24)
[2023-06-29] MEDS: INSULIN GLARGINE 100 UNITS/ML SUBCUT SCH ×2 (09:00→23:08)
[2023-06-29] MEDS: INSULIN LISPRO 100 UNITS/ML SUBCUT SCH ×4 (09:04→21:00)
[2023-06-29 17:12] LABS: ANISOCYTOSIS 1+; PLATELET ESTIMATE INCREASED
[2023-06-29] MEDS: LINEZOLID 600 MG PREMIX 300 ML IV SCH ×2 (17:23→17:24)
[2023-06-29] MEDS ORDERED: VANCOMYCIN 750MG PREMIX 150 ML IV SCH ×2 (20:00)
[2023-06-29 20:44] LABS: CREATINE KINASE 313 IU/L (46-171)
[2023-06-30] VITALS (20 sets, daily range): BP systolic 75–95; BP diastolic 52–69; PULSE 71–98; RESP 12–27; TEMP 97.3–100.8
[2023-06-30] MEDS: PIPERACILLIN/TAZOBACTAM 3.375 G in DEXTROSE 5% WATER 50 ML IV SCH ×3 (05:04→21:13)
[2023-06-30] MEDS: ACETAMINOPHEN 650MG/20.3ML UDC PO PRN (06:01)
[2023-06-30 07:16] LABS: CALCIUM 7.4 mg/dL (8.7-10.4); CREATININE 1.5 mg/dL (0.6-1.3); POTASSIUM 4.4 mEq/L (3.5-5.1)
[2023-06-30 07:23] LABS: BASOPHILS % 0.8 % (0.0-2.0); EOSINOPHILS % 0.1 % (0.0-5.0); HEMOGLOBIN. 8.1 g/dL (14.0-18.0); LYMPHOCYTES % 22.5 % (20.0-50.0); MEAN CORPUSCULAR HEMOGLOBIN 28.7 pg (28.0-32.0); MEAN CORPUSCULAR HGB CONC 32.6 g/dL (31.0-37.0); MEAN CORPUSCULAR VOLUME 88.1 fL (80.0-94.0); MEAN PLATELET VOLUME 8.3 fl (7.4-10.4); MONOCYTES % 5.1 % (2.0-8.0); NEUTROPHILS % 71.5 % (40.0-76.0); PLATELET 452 x1000/uL (130-400); RED BLOOD CELL COUNT 2.83 mill/uL (4.7-6.1); RED CELL DISTRIBUTION WIDTH 16.1 % (11.6-14.6); WHITE BLOOD COUNT 18.3 x1000/uL (4.5-11.0)
[2023-06-30] MEDS: PANTOPRAZOLE SODIUM 40 MG/VIAL IV SCH (08:29)
[2023-06-30] MEDS: MULTIVITAMINS,THER W-MINERALS TABLET PO SCH (08:29)
[2023-06-30] MEDS: MIDODRINE HCL 5MG TABLET PO SCH ×3 (08:30→16:45)
[2023-06-30] MEDS: AMLODIPINE 10MG TABLET PO SCH (08:30)
[2023-06-30] MEDS: BLOOD SUGAR DIAGNOSTIC STRIP TEST SCH ×4 (08:42→22:57)
[2023-06-30] MEDS: INSULIN LISPRO 100 UNITS/ML SUBCUT SCH ×4 (08:43→23:04)
[2023-06-30] MEDS: DEXTROSE 50% WATER 50ML SYRINGE IV PRN (09:10)
[2023-06-30] MEDS: LINEZOLID 600 MG PREMIX 300 ML IV SCH (16:19)
[2023-06-30] MEDS: METOCLOPRAMIDE HCL 10MG/2ML VIAL IV SCH ×2 (17:25→23:04)
[2023-06-30] MEDS ORDERED: VANCOMYCIN 750MG PREMIX 150 ML IV NR (19:00)
[2023-06-30] MEDS: DEXTROSE 5% WATER 1,000 ML IV SCH (20:18)
[2023-07-01] VITALS (16 sets, daily range): BP systolic 75–100; BP diastolic 52–72; PULSE 63–87; RESP 10–22; TEMP 97.5–98.3
[2023-07-01 01:43] LABS: CREATINE KINASE 562 IU/L (46-171)
[2023-07-01] MEDS: LINEZOLID 600 MG PREMIX 300 ML IV SCH ×2 (03:01→16:41)
[2023-07-01] MEDS: ACETAMINOPHEN 650MG/20.3ML UDC PO PRN ×2 (04:01→11:25)
[2023-07-01] MEDS: BLOOD SUGAR DIAGNOSTIC STRIP TEST SCH ×4 (04:48→23:43)
[2023-07-01] MEDS: METOCLOPRAMIDE HCL 10MG/2ML VIAL IV SCH ×4 (04:55→23:41)
[2023-07-01] MEDS: INSULIN LISPRO 100 UNITS/ML SUBCUT SCH ×4 (04:56→23:42)
[2023-07-01 06:59] LABS: BASOPHILS % 0.2 % (0.0-2.0); EOSINOPHILS % 0.4 % (0.0-5.0); LYMPHOCYTES % 12.2 % (20.0-50.0); MEAN CORPUSCULAR HEMOGLOBIN 28.4 pg (28.0-32.0); MEAN CORPUSCULAR VOLUME 88.6 fL (80.0-94.0); MEAN PLATELET VOLUME 8.4 fl (7.4-10.4); MONOCYTES % 2.4 % (2.0-8.0); NEUTROPHILS % 84.8 % (40.0-76.0); PLATELET 420 x1000/uL (130-400); RED BLOOD CELL COUNT 2.82 mill/uL (4.7-6.1); RED CELL DISTRIBUTION WIDTH 15.2 % (11.6-14.6); WHITE BLOOD COUNT 16.1 x1000/uL (4.5-11.0)
[2023-07-01 08:11] LABS: CALCIUM 7.6 mg/dL (8.7-10.4); CREATININE 1.6 mg/dL (0.6-1.3); POTASSIUM 3.7 mEq/L (3.5-5.1)
[2023-07-01] MEDS: AMLODIPINE 10MG TABLET PO SCH (09:00)
[2023-07-01] MEDS: PANTOPRAZOLE SODIUM 40 MG/VIAL IV SCH (09:24)
[2023-07-01] MEDS: MIDODRINE HCL 5MG TABLET PO SCH ×4 (11:26→22:12)
[2023-07-01] MEDS: MULTIVITAMINS,THER W-MINERALS TABLET PO SCH (11:26)
[2023-07-01] MEDS ORDERED: HYDROCODONE/ACETAMINOPHEN 5/325MG TABLET PO PRN (11:45)
[2023-07-01] MEDS ORDERED: NALOXONE HCL 0.4MG/ML VIAL IV PRN (13:15)
[2023-07-01] MEDS: VANCOMYCIN 750MG PREMIX 150 ML IV SCH (19:53)
[2023-07-01] MEDS ORDERED: SODIUM CHLORIDE 0.9% 500 ML IV SCH (22:00)
[2023-07-02] VITALS (10 sets, daily range): BP systolic 92–110; BP diastolic 64–75; PULSE 69–92; RESP 11–20; TEMP 97.2–98
[2023-07-02] MEDS: LINEZOLID 600 MG PREMIX 300 ML IV SCH ×2 (04:00→16:27)
[2023-07-02] MEDS: MIDODRINE HCL 5MG TABLET PO SCH ×4 (04:01→21:17)
[2023-07-02] MEDS: DEXTROSE 5% WATER 1,000 ML IV SCH (04:01)
[2023-07-02] MEDS: METOCLOPRAMIDE HCL 10MG/2ML VIAL IV SCH ×4 (06:58→23:41)
[2023-07-02] MEDS: INSULIN LISPRO 100 UNITS/ML SUBCUT SCH ×4 (06:58→23:42)
[2023-07-02] MEDS: BLOOD SUGAR DIAGNOSTIC STRIP TEST SCH ×4 (06:59→23:35)
[2023-07-02 07:35] LABS: BASOPHILS % 0.2 % (0.0-2.0); EOSINOPHILS % 0.4 % (0.0-5.0); HEMATOCRIT. 24.8 % (42.0-52.0); LYMPHOCYTES % 10.7 % (20.0-50.0); MEAN CORPUSCULAR HEMOGLOBIN 28.5 pg (28.0-32.0); MEAN CORPUSCULAR HGB CONC 32.4 g/dL (31.0-37.0); MEAN PLATELET VOLUME 8.7 fl (7.4-10.4); MONOCYTES % 3.3 % (2.0-8.0); NEUTROPHILS % 85.4 % (40.0-76.0); PLATELET 465 x1000/uL (130-400); RED BLOOD CELL COUNT 2.82 mill/uL (4.7-6.1); RED CELL DISTRIBUTION WIDTH 15.3 % (11.6-14.6); WHITE BLOOD COUNT 16.1 x1000/uL (4.5-11.0)
[2023-07-02 07:57] LABS: CALCIUM 7.5 mg/dL (8.7-10.4); CARBON DIOXIDE 24 mEq/L (21-32); CHLORIDE 109 mEq/L (98-107); CREATININE 1.4 mg/dL (0.6-1.3); GLUCOSE 252 mg/dL (70-105); SODIUM 143 mEq/L (136-145); UREA NITROGEN BLOOD 68 mg/dL (9-23)
[2023-07-02] MEDS: AMLODIPINE 10MG TABLET PO SCH (08:15)
[2023-07-02] MEDS: MULTIVITAMINS,THER W-MINERALS TABLET PO SCH (09:55)
[2023-07-02] MEDS: PANTOPRAZOLE SODIUM 40 MG/VIAL IV SCH (09:56)
[2023-07-02] MEDS ORDERED: TETRACAINE/BENZOCAINE/BUTAMBEN 20 GM SPRAY MM ONE (12:28)
[2023-07-02] MEDS ORDERED: LIDOCAINE 2% 6ML GLYDO MM ONE (12:28)
[2023-07-02] MEDS ORDERED: MIDAZOLAM HCL 2 MG/2 ML VIAL ONE (12:56)
[2023-07-02] MEDS ORDERED: FENTANYL CITRATE/PF 50MCG/ML 2ML VIAL ONE (12:56)
[2023-07-02] MEDS: VANCOMYCIN 750MG PREMIX 150 ML IV SCH (18:40)
[2023-07-02] MEDS: ACETAMINOPHEN 650MG/20.3ML UDC PO PRN (23:44)
[2023-07-03] VITALS (13 sets, daily range): BP systolic 91–120; BP diastolic 64–83; PULSE 79–102; RESP 12–19; TEMP 97.3–97.8
[2023-07-03] MEDS: DEXTROSE 5% WATER 1,000 ML IV SCH ×4 (03:21→22:48)
[2023-07-03] MEDS: MIDODRINE HCL 5MG TABLET PO SCH ×4 (04:12→22:48)
[2023-07-03] MEDS: LINEZOLID 600 MG PREMIX 300 ML IV SCH ×2 (04:18→16:55)
[2023-07-03] MEDS: ACETAMINOPHEN 650MG/20.3ML UDC PO PRN (04:45)
[2023-07-03] MEDS: BLOOD SUGAR DIAGNOSTIC STRIP TEST SCH ×3 (06:00→18:00)
[2023-07-03] MEDS: INSULIN LISPRO 100 UNITS/ML SUBCUT SCH ×3 (06:00→18:00)
[2023-07-03] MEDS: METOCLOPRAMIDE HCL 10MG/2ML VIAL IV SCH ×3 (06:10→18:33)
[2023-07-03] MEDS: MULTIVITAMINS,THER W-MINERALS TABLET PO SCH (08:22)
[2023-07-03] MEDS: AMLODIPINE 10MG TABLET PO SCH (08:26)
[2023-07-03] MEDS: VANCOMYCIN 750MG PREMIX 150 ML IV SCH (20:15)
[2023-07-04] VITALS (9 sets, daily range): BP systolic 97–109; BP diastolic 63–81; PULSE 70–94; RESP 9–18; TEMP 97–98
[2023-07-04] MEDS: BLOOD SUGAR DIAGNOSTIC STRIP TEST SCH ×5 (00:39→23:01)
[2023-07-04] MEDS: METOCLOPRAMIDE HCL 10MG/2ML VIAL IV SCH ×5 (00:39→23:32)
[2023-07-04] MEDS: INSULIN LISPRO 100 UNITS/ML SUBCUT SCH ×5 (00:53→23:35)
[2023-07-04] MEDS: LINEZOLID 600 MG PREMIX 300 ML IV SCH ×2 (04:00→17:56)
[2023-07-04] MEDS: MIDODRINE HCL 5MG TABLET PO SCH ×4 (04:00→22:16)
[2023-07-04 06:48] LABS: CARBON DIOXIDE 27 mEq/L (21-32); CHLORIDE 110 mEq/L (98-107); GLUCOSE 226 mg/dL (70-105); SODIUM 143 mEq/L (136-145); UREA NITROGEN BLOOD 50 mg/dL (9-23)
[2023-07-04] MEDS: MULTIVITAMINS,THER W-MINERALS TABLET PO SCH (09:24)
[2023-07-04] MEDS: AMLODIPINE 10MG TABLET PO SCH (09:24)
[2023-07-04] MEDS: TRAMADOL 50MG TABLET PO PRN ×2 (11:40→18:14)
[2023-07-04] MEDS: VANCOMYCIN 1G PREMIX 200 ML IV SCH (20:16)
[2023-07-05] VITALS: BP 106/76; PULSE 87; RESP 11; TEMP 97.8
[2023-07-05] MEDS: MIDODRINE HCL 5MG TABLET PO SCH ×4 (03:56→22:11)
[2023-07-05 04:00] VITALS: BP 103/75; PULSE 74; RESP 12
[2023-07-05] MEDS: METOCLOPRAMIDE HCL 10MG/2ML VIAL IV SCH ×4 (05:34→23:57)
[2023-07-05] MEDS: BLOOD SUGAR DIAGNOSTIC STRIP TEST SCH ×4 (05:34→23:57)
[2023-07-05] MEDS: INSULIN LISPRO 100 UNITS/ML SUBCUT SCH ×3 (06:01→17:38)
[2023-07-05 08:00] VITALS: BP 89/51; PULSE 75; RESP 11; TEMP 97.8
[2023-07-05] MEDS: AMLODIPINE 10MG TABLET PO SCH (08:20)
[2023-07-05] MEDS: MULTIVITAMINS,THER W-MINERALS TABLET PO SCH (08:20)
[2023-07-05 12:00] VITALS: BP 95/60; PULSE 78; RESP 13; TEMP 97.6
[2023-07-05] MEDS: LINEZOLID 600 MG PREMIX 300 ML IV SCH ×2 (12:31→22:11)
[2023-07-05 12:52] LABS: BASOPHILS % 0.3 % (0.0-2.0); EOSINOPHILS % 1.4 % (0.0-5.0); HEMATOCRIT. 24.2 % (42.0-52.0); HEMOGLOBIN. 7.2 g/dL (14.0-18.0); LYMPHOCYTES % 13.6 % (20.0-50.0); MEAN CORPUSCULAR HEMOGLOBIN 26.8 pg (28.0-32.0); MEAN CORPUSCULAR HGB CONC 29.9 g/dL (31.0-37.0); MEAN CORPUSCULAR VOLUME 89.7 fL (80.0-94.0); MEAN PLATELET VOLUME 7.6 fl (7.4-10.4); NEUTROPHILS % 80.7 % (40.0-76.0); PLATELET 549 x1000/uL (130-400); RED CELL DISTRIBUTION WIDTH 15.4 % (11.6-14.6); WHITE BLOOD COUNT 16.7 x1000/uL (4.5-11.0)
[2023-07-05 13:18] LABS: CALCIUM 8.1 mg/dL (8.7-10.4); CARBON DIOXIDE 28 mEq/L (21-32); CHLORIDE 112 mEq/L (98-107); CREATININE 0.9 mg/dL (0.6-1.3); GLUCOSE 268 mg/dL (70-105); POTASSIUM 4.1 mEq/L (3.5-5.1); SODIUM 146 mEq/L (136-145); UREA NITROGEN BLOOD 42 mg/dL (9-23)
[2023-07-05 16:00] VITALS: BP 90/64; PULSE 76; RESP 14; TEMP 97.4
[2023-07-05] MEDS: VANCOMYCIN 1G PREMIX 200 ML IV SCH (19:49)
[2023-07-05 20:00] VITALS: BP 89/65; PULSE 86; RESP 12; TEMP 97.8
[2023-07-05] MEDS: NYSTATIN POWDER 15GM TOP SCH (23:56)
[2023-07-06] VITALS: BP 115/74; PULSE 87; RESP 11; TEMP 98.3
[2023-07-06] MEDS: INSULIN LISPRO 100 UNITS/ML SUBCUT SCH ×5 (00:14→23:17)
[2023-07-06] MEDS: MIDODRINE HCL 5MG TABLET PO SCH ×4 (03:43→21:37)
[2023-07-06 04:00] VITALS: BP 90/60; PULSE 82; RESP 15; TEMP 98
[2023-07-06 05:00] VITALS: BP 96/71; PULSE 74; RESP 18; TEMP 98.8
[2023-07-06] MEDS: BLOOD SUGAR DIAGNOSTIC STRIP TEST SCH ×4 (05:37→23:12)
[2023-07-06] MEDS: METOCLOPRAMIDE HCL 10MG/2ML VIAL IV SCH ×4 (05:43→23:16)
[2023-07-06 06:42] LABS: BASOPHILS % 0.3 % (0.0-2.0); EOSINOPHILS % 0.8 % (0.0-5.0); HEMATOCRIT. 24.2 % (42.0-52.0); HEMOGLOBIN. 7.5 g/dL (14.0-18.0); LYMPHOCYTES % 13.6 % (20.0-50.0); MEAN CORPUSCULAR HEMOGLOBIN 27.2 pg (28.0-32.0); MEAN CORPUSCULAR HGB CONC 31.2 g/dL (31.0-37.0); MEAN CORPUSCULAR VOLUME 87.3 fL (80.0-94.0); NEUTROPHILS % 82.3 % (40.0-76.0); PLATELET 591 x1000/uL (130-400); RED BLOOD CELL COUNT 2.77 mill/uL (4.7-6.1); RED CELL DISTRIBUTION WIDTH 15.4 % (11.6-14.6)
[2023-07-06 07:11] LABS: CALCIUM 8.4 mg/dL (8.7-10.4); CARBON DIOXIDE 29 mEq/L (21-32); CHLORIDE 112 mEq/L (98-107); CREATININE 0.9 mg/dL (0.6-1.3); GLUCOSE 222 mg/dL (70-105); POTASSIUM 3.8 mEq/L (3.5-5.1); SODIUM 147 mEq/L (136-145); UREA NITROGEN BLOOD 41 mg/dL (9-23)
[2023-07-06] MEDS: AMLODIPINE 10MG TABLET PO SCH (09:00)
[2023-07-06] MEDS: LINEZOLID 600 MG PREMIX 300 ML IV SCH ×2 (10:08→21:36)
[2023-07-06] MEDS: MULTIVITAMINS,THER W-MINERALS TABLET PO SCH (10:08)
[2023-07-06] MEDS: NYSTATIN POWDER 15GM TOP SCH ×2 (10:09→18:24)
[2023-07-06 12:00] VITALS: BP 121/85; PULSE 114; RESP 18; TEMP 98.1
[2023-07-06 15:56] VITALS: BP 118/75; PULSE 93; RESP 22; TEMP 98.4
[2023-07-06] MEDS ORDERED: NALOXONE HCL 0.4MG/ML VIAL IV PRN (17:00)
[2023-07-06 20:00] VITALS: BP 111/76; PULSE 100; RESP 18; TEMP 97.9
[2023-07-06] MEDS: VANCOMYCIN 1G PREMIX 200 ML IV SCH (20:44)
[2023-07-07] VITALS: BP 107/66; PULSE 83; RESP 18; TEMP 97.7
[2023-07-07] MEDS: MIDODRINE HCL 5MG TABLET PO SCH ×4 (03:27→22:15)
[2023-07-07 04:00] VITALS: BP 106/70; PULSE 87; RESP 18; TEMP 97.9
[2023-07-07] MEDS: BLOOD SUGAR DIAGNOSTIC STRIP TEST SCH ×3 (05:26→18:25)
[2023-07-07] MEDS: INSULIN LISPRO 100 UNITS/ML SUBCUT SCH ×3 (05:28→18:26)
[2023-07-07] MEDS: METOCLOPRAMIDE HCL 10MG/2ML VIAL IV SCH ×3 (05:28→18:24)
[2023-07-07 08:02] VITALS: BP 117/75; PULSE 91; RESP 20; TEMP 98.9
[2023-07-07] MEDS: NYSTATIN POWDER 15GM TOP SCH ×2 (09:48→18:25)
[2023-07-07] MEDS: LINEZOLID 600 MG PREMIX 300 ML IV SCH ×2 (09:48→22:16)
[2023-07-07] MEDS: MULTIVITAMINS,THER W-MINERALS TABLET PO SCH (09:48)
[2023-07-07] MEDS: INSULIN GLARGINE 100 UNITS/ML SUBCUT SCH ×2 (09:51→22:18)
[2023-07-07 11:29] VITALS: BP 118/70; PULSE 105; RESP 22; TEMP 98.5
[2023-07-07] MEDS ORDERED: MORPHINE SULFATE 2 MG/ML CPJ (NOT FOR IM USE) IV PRN (13:00)
[2023-07-07] MEDS ORDERED: MORPHINE SULFATE 2 MG/ML CPJ (NOT FOR IM USE) IV NR (13:00)
[2023-07-07 13:21] LABS: HEMATOCRIT 24.7 % (42.0-52.0); HEMOGLOBIN 8.1 g/dL (14.0-18.0); MEAN CORPUSCULAR HGB CONC 32.8 g/dL (31.0-37.0); MEAN CORPUSCULAR VOLUME 88.6 fL (80.0-94.0); PLATELET 613 x1000/uL (130-400); RED BLOOD CELL COUNT 2.79 mill/uL (4.7-6.1); RED CELL DISTRIBUTION WIDTH 15.5 % (11.6-14.6); WHITE BLOOD COUNT 17.1 x1000/uL (4.5-11.0)
[2023-07-07 14:36] LABS: CALCIUM 8.6 mg/dL (8.7-10.4); CARBON DIOXIDE 32 mEq/L (21-32); CHLORIDE 111 mEq/L (98-107); GLUCOSE 306 mg/dL (70-105); SODIUM 147 mEq/L (136-145); UREA NITROGEN BLOOD 47 mg/dL (9-23)
[2023-07-07 20:00] VITALS: BP 97/67; PULSE 94; RESP 19; TEMP 100.8
[2023-07-07] MEDS: VANCOMYCIN 1G PREMIX 200 ML IV SCH (22:15)
[2023-07-08] VITALS (51 sets, daily range): BP systolic 76–125; BP diastolic 56–93; PULSE 81–106; RESP 12–31; TEMP 94–99.2
[2023-07-08] MEDS: METOCLOPRAMIDE HCL 10MG/2ML VIAL IV SCH ×5 (00:20→23:20)
[2023-07-08] MEDS: MIDODRINE HCL 5MG TABLET PO SCH ×4 (04:00→22:00)
[2023-07-08] MEDS: INSULIN LISPRO 100 UNITS/ML SUBCUT SCH ×3 (05:37→17:56)
[2023-07-08] MEDS: BLOOD SUGAR DIAGNOSTIC STRIP TEST SCH ×4 (05:37→17:51)
[2023-07-08 06:30] LABS: BASOPHILS % 0.4 % (0.0-2.0); EOSINOPHILS % 0.7 % (0.0-5.0); HEMATOCRIT. 25.7 % (42.0-52.0); HEMOGLOBIN. 8.4 g/dL (14.0-18.0); LYMPHOCYTES % 19.4 % (20.0-50.0); MEAN CORPUSCULAR HEMOGLOBIN 28.4 pg (28.0-32.0); MEAN CORPUSCULAR HGB CONC 32.8 g/dL (31.0-37.0); MEAN CORPUSCULAR VOLUME 86.6 fL (80.0-94.0); MEAN PLATELET VOLUME 6.5 fl (7.4-10.4); MONOCYTES % 4.5 % (2.0-8.0); PLATELET 593 x1000/uL (130-400); RED BLOOD CELL COUNT 2.97 mill/uL (4.7-6.1); RED CELL DISTRIBUTION WIDTH 15.4 % (11.6-14.6); WHITE BLOOD COUNT 17.6 x1000/uL (4.5-11.0)
[2023-07-08] MEDS ORDERED: THROMBIN (BOVINE) 5000 UNITS/VIAL TOP ONE (06:31)
[2023-07-08] MEDS ORDERED: BACITRACIN 14GM TUBE TOP ONE (06:31)
[2023-07-08] MEDS ORDERED: GENTAMICIN SULF 40MG/ML 2ML VIAL ONE (06:32)
[2023-07-08] MEDS ORDERED: LIDOCAINE HCL 1%/EPI 1:200,000 30 ML VIAL ONE (06:32)
[2023-07-08] MEDS ORDERED: DEXAMETHASONE 4MG/ML 1ML VIAL ONE (07:05)
[2023-07-08] MEDS ORDERED: METOCLOPRAMIDE HCL 10MG/2ML VIAL ONE (07:05)
[2023-07-08] MEDS ORDERED: EPHEDRINE SULFATE 50MG/ML VIAL ONE (07:05)
[2023-07-08] MEDS ORDERED: ROCURONIUM BROMIDE 10MG/ML VIAL 5ML IV ONE ×3 (07:05→10:01)
[2023-07-08] MEDS ORDERED: ONDANSETRON HCL 4MG/2ML INJ ONE (07:05)
[2023-07-08] MEDS ORDERED: PROPOFOL 200MG/20ML VIAL IV ONE (07:05)
[2023-07-08] MEDS ORDERED: LIDOCAINE HCL 1% 10 MG/ML 10ML VIAL ONE (07:05)
[2023-07-08] MEDS ORDERED: FENTANYL CITRATE/PF 50MCG/ML 2ML VIAL ONE (07:06)
[2023-07-08] MEDS ORDERED: MIDAZOLAM HCL 2 MG/2 ML VIAL ONE (07:06)
[2023-07-08 07:43] LABS: CALCIUM 8.5 mg/dL (8.7-10.4); CARBON DIOXIDE 33 mEq/L (21-32); CHLORIDE 114 mEq/L (98-107); CREATININE 0.9 mg/dL (0.6-1.3); GLUCOSE 95 mg/dL (70-105); POTASSIUM 4.4 mEq/L (3.5-5.1); SODIUM 151 mEq/L (136-145); UREA NITROGEN BLOOD 39 mg/dL (9-23)
[2023-07-08] MEDS ORDERED: SODIUM CHLORIDE 0.9% 1,000 ML IV SCH ×2 (10:00→13:45)
[2023-07-08] MEDS ORDERED: MORPHINE SULFATE 4 MG/ML CPJ (NOT FOR IM USE) IV PRN (10:00)
[2023-07-08] MEDS ORDERED: NICARDIPINE 100 MG in SODIUM CHLORIDE 0.9% 60 ML IV PRN (10:00)
[2023-07-08] MEDS: DEXTROSE 5% WATER 1,000 ML IV SCH (12:14)
[2023-07-08] MEDS: INSULIN GLARGINE 100 UNITS/ML SUBCUT SCH ×2 (12:19→22:00)
[2023-07-08] MEDS: LINEZOLID 600 MG PREMIX 300 ML IV SCH ×2 (13:58→22:00)
[2023-07-08] MEDS ORDERED: SODIUM CHLORIDE 0.9% 1,000 ML IV NR (14:15)
[2023-07-08] MEDS ORDERED: PHENYLEPHRINE 50 MG in DEXT 5% WATER 245 ML IV PRN (14:15)
[2023-07-08] MEDS ORDERED: PROPOFOL 10MG/ML 100ML 100 ML IV PRN (14:15)
[2023-07-08 15:45] LABS: BG BASE EXCESS -1.3 mmol/L (-2.0-2.0); BG CARBOXYHEMOGLOBIN 0.3 % (0.5-1.5); BG DEOXYHEMOGLOBIN 1.1 % (0.0-5.0); BG FRACTION INSPIRED OXYGEN 50; BG HCO3 ACT 22.2 mmol/L (22.0-26.0); BG METHEMOGLOBIN 0.4 % (0.0-1.5); BG OXYGEN SATURATION 98.9 % (92.0-98.5); BG OXYHEMOGLOBIN 98.2 % (94.0-97.0); BG PCO2 32.2 mmHg (35.0-45.0); BG PH 7.457 (7.350-7.450); BG PO2 200.7 mmHg (75.0-100.0); BG SAMPLE SITE ALINE; BG TOTAL HEMOGLOBIN 7.6 g/dL (12.0-18.0); BG VENT MODE VENT - AC/VC
[2023-07-08] MEDS: NYSTATIN POWDER 15GM TOP SCH (17:00)
[2023-07-08] MEDS ORDERED: RIFAMPIN IV SCH (20:00)
[2023-07-08] MEDS ORDERED: DEXT 5% IV SCH (20:00)
[2023-07-08] MEDS ORDERED: WATER IV SCH (20:00)
[2023-07-08] MEDS: ACETAMINOPHEN 650MG/20.3ML UDC PO PRN (21:14)
[2023-07-08] MEDS: VANCOMYCIN 1G PREMIX 200 ML IV SCH (22:15)
[2023-07-09] VITALS (59 sets, daily range): BP systolic 85–130; BP diastolic 51–97; PULSE 57–91; RESP 8–19; TEMP 97.1–98.3
[2023-07-09] MEDS: ACETAMINOPHEN 650MG/20.3ML UDC PO PRN (00:04)
[2023-07-09] MEDS: BLOOD SUGAR DIAGNOSTIC STRIP TEST SCH ×5 (00:05→23:29)
[2023-07-09] MEDS: TRAMADOL 50MG TABLET PO PRN (01:13)
[2023-07-09] MEDS: DEXTROSE 5% WATER 1,000 ML IV SCH ×3 (02:19→21:35)
[2023-07-09] MEDS: INSULIN LISPRO 100 UNITS/ML SUBCUT SCH ×5 (06:00→23:29)
[2023-07-09] MEDS: MIDODRINE HCL 5MG TABLET PO SCH ×4 (06:57→21:50)
[2023-07-09] MEDS: METOCLOPRAMIDE HCL 10MG/2ML VIAL IV SCH ×4 (06:57→23:45)
[2023-07-09 09:03] LABS: BASOPHILS % 0.3 % (0.0-2.0); EOSINOPHILS % 0.9 % (0.0-5.0); HEMATOCRIT. 21.3 % (42.0-52.0); HEMOGLOBIN. 7.2 g/dL (14.0-18.0); LYMPHOCYTES % 22.2 % (20.0-50.0); MEAN CORPUSCULAR HEMOGLOBIN 29.2 pg (28.0-32.0); MEAN CORPUSCULAR HGB CONC 33.8 g/dL (31.0-37.0); MEAN CORPUSCULAR VOLUME 86.4 fL (80.0-94.0); MEAN PLATELET VOLUME 6.2 fl (7.4-10.4); MONOCYTES % 4.5 % (2.0-8.0); NEUTROPHILS % 72.1 % (40.0-76.0); PLATELET 472 x1000/uL (130-400); RED BLOOD CELL COUNT 2.46 mill/uL (4.7-6.1); RED CELL DISTRIBUTION WIDTH 15.3 % (11.6-14.6); WHITE BLOOD COUNT 17.4 x1000/uL (4.5-11.0)
[2023-07-09 09:23] LABS: CALCIUM 7.6 mg/dL (8.7-10.4); CARBON DIOXIDE 30 mEq/L (21-32); CHLORIDE 112 mEq/L (98-107); GLUCOSE 114 mg/dL (70-105); POTASSIUM 4.3 mEq/L (3.5-5.1); SODIUM 145 mEq/L (136-145); TRIGLYCERIDE 73 mg/dL (0-150); UREA NITROGEN BLOOD 39 mg/dL (9-23)
[2023-07-09] MEDS: NYSTATIN POWDER 15GM TOP SCH ×2 (09:46→16:51)
[2023-07-09 09:51] LABS: BG BASE EXCESS 0.9 mmol/L (-2.0-2.0); BG CARBOXYHEMOGLOBIN 0.3 % (0.5-1.5); BG DEOXYHEMOGLOBIN 1.1 % (0.0-5.0); BG FRACTION INSPIRED OXYGEN 40; BG HCO3 ACT 24.9 mmol/L (22.0-26.0); BG METHEMOGLOBIN 0.4 % (0.0-1.5); BG OXYGEN SATURATION 98.9 % (92.0-98.5); BG OXYHEMOGLOBIN 98.2 % (94.0-97.0); BG PCO2 36.5 mmHg (35.0-45.0); BG PH 7.451 (7.350-7.450); BG PO2 140.4 mmHg (75.0-100.0); BG SAMPLE SITE LEFT RADIAL; BG TOTAL HEMOGLOBIN 7.5 g/dL (12.0-18.0); BG TOTAL RESPIRATORY RATE 12 b/min; BG VENT MODE VENT - AC
[2023-07-09] MEDS: INSULIN GLARGINE 100 UNITS/ML SUBCUT SCH ×2 (09:53→21:50)
[2023-07-09] MEDS: LINEZOLID 600 MG PREMIX 300 ML IV SCH ×2 (10:39→21:38)
[2023-07-09 11:19] LABS: BG BASE EXCESS 0.5 mmol/L (-2.0-2.0); BG CARBOXYHEMOGLOBIN 0.3 % (0.5-1.5); BG DEOXYHEMOGLOBIN 0.9 % (0.0-5.0); BG FRACTION INSPIRED OXYGEN 40; BG HCO3 ACT 23.7 mmol/L (22.0-26.0); BG METHEMOGLOBIN 0.6 % (0.0-1.5); BG OXYGEN SATURATION 99.1 % (92.0-98.5); BG OXYHEMOGLOBIN 98.2 % (94.0-97.0); BG PH 7.488 (7.350-7.450); BG PO2 205.6 mmHg (75.0-100.0); BG SAMPLE SITE LEFT BRACHIAL; BG TOTAL HEMOGLOBIN 7.2 g/dL (12.0-18.0); BG VENT MODE MASK - CPAP
[2023-07-09] MEDS: DEXTROSE 50% WATER 50ML SYRINGE IV PRN (18:20)
[2023-07-09] MEDS: VANCOMYCIN 1G PREMIX 200 ML IV SCH (21:36)
[2023-07-09] MEDS: RIFAMPIN 300MG CAPSULE PO SCH (21:36)
[2023-07-10] VITALS (8 sets, daily range): BP systolic 9–125; BP diastolic 53–72; PULSE 63–91; RESP 18–63; TEMP 97.3–97.9
[2023-07-10] MEDS: MIDODRINE HCL 5MG TABLET PO SCH ×4 (05:03→21:20)
[2023-07-10] MEDS: METOCLOPRAMIDE HCL 10MG/2ML VIAL IV SCH ×3 (05:04→18:32)
[2023-07-10] MEDS: BLOOD SUGAR DIAGNOSTIC STRIP TEST SCH ×3 (06:00→18:33)
[2023-07-10] MEDS: INSULIN LISPRO 100 UNITS/ML SUBCUT SCH ×3 (06:00→18:00)
[2023-07-10] MEDS: DEXTROSE 50% WATER 50ML SYRINGE IV PRN (06:15)
[2023-07-10 06:55] LABS: BASOPHILS % 0.4 % (0.0-2.0); EOSINOPHILS % 0.7 % (0.0-5.0); HEMATOCRIT. 21.7 % (42.0-52.0); HEMOGLOBIN. 7.2 g/dL (14.0-18.0); LYMPHOCYTES % 23.4 % (20.0-50.0); MEAN CORPUSCULAR HEMOGLOBIN 29.1 pg (28.0-32.0); MEAN CORPUSCULAR HGB CONC 33.3 g/dL (31.0-37.0); MEAN CORPUSCULAR VOLUME 87.4 fL (80.0-94.0); MEAN PLATELET VOLUME 6.4 fl (7.4-10.4); MONOCYTES % 4.7 % (2.0-8.0); NEUTROPHILS % 70.8 % (40.0-76.0); PLATELET 503 x1000/uL (130-400); RED BLOOD CELL COUNT 2.48 mill/uL (4.7-6.1); RED CELL DISTRIBUTION WIDTH 15.2 % (11.6-14.6); WHITE BLOOD COUNT 14.8 x1000/uL (4.5-11.0)
[2023-07-10 07:23] LABS: CALCIUM 7.7 mg/dL (8.7-10.4); CARBON DIOXIDE 29 mEq/L (21-32); CHLORIDE 107 mEq/L (98-107); CREATININE 0.8 mg/dL (0.6-1.3); SODIUM 140 mEq/L (136-145); UREA NITROGEN BLOOD 26 mg/dL (9-23)
[2023-07-10 08:50] LABS: GLUCOSE 48 mg/dL (70-105)
[2023-07-10] MEDS: RIFAMPIN 300MG CAPSULE PO SCH ×2 (09:09→18:32)
[2023-07-10] MEDS: LACTOBACILLUS GG CAPSULE PO SCH (09:09)
[2023-07-10] MEDS: NYSTATIN POWDER 15GM TOP SCH ×2 (09:10→17:00)
[2023-07-10] MEDS ORDERED: INSULIN GLARGINE 100 UNITS/ML SUBCUT SCH (10:00)
[2023-07-10] MEDS: LINEZOLID 600 MG PREMIX 300 ML IV SCH ×2 (10:25→21:20)
[2023-07-10 12:26] LABS: CREATINE KINASE 115 IU/L (46-171)
[2023-07-10] MEDS: VANCOMYCIN 1G PREMIX 200 ML IV SCH (21:20)
[2023-07-10] MEDS: DEXTROSE 5% WATER 1,000 ML IV SCH (21:28)
[2023-07-11] VITALS (7 sets, daily range): BP systolic 97–105; BP diastolic 63–71; PULSE 73–91; RESP 16–21; TEMP 97.6–98.6
[2023-07-11] MEDS: INSULIN LISPRO 100 UNITS/ML SUBCUT SCH ×4 (00:59→17:15)
[2023-07-11] MEDS: MIDODRINE HCL 5MG TABLET PO SCH ×3 (04:45→15:27)
[2023-07-11] MEDS: METOCLOPRAMIDE HCL 10MG/2ML VIAL IV SCH ×4 (05:11→17:14)
[2023-07-11] MEDS: DEXTROSE 5% WATER 1,000 ML IV SCH (05:12)
[2023-07-11] MEDS: BLOOD SUGAR DIAGNOSTIC STRIP TEST SCH ×4 (05:12→17:13)
[2023-07-11 06:00] LABS: BASOPHILS % 0.3 % (0.0-2.0); EOSINOPHILS % 0.6 % (0.0-5.0); HEMATOCRIT. 22.2 % (42.0-52.0); HEMOGLOBIN. 7.4 g/dL (14.0-18.0); LYMPHOCYTES % 15.8 % (20.0-50.0); MEAN CORPUSCULAR HEMOGLOBIN 28.8 pg (28.0-32.0); MEAN CORPUSCULAR HGB CONC 33.2 g/dL (31.0-37.0); MEAN CORPUSCULAR VOLUME 86.9 fL (80.0-94.0); MEAN PLATELET VOLUME 6.4 fl (7.4-10.4); MONOCYTES % 5.7 % (2.0-8.0); NEUTROPHILS % 77.6 % (40.0-76.0); PLATELET 497 x1000/uL (130-400); RED BLOOD CELL COUNT 2.55 mill/uL (4.7-6.1); RED CELL DISTRIBUTION WIDTH 15.2 % (11.6-14.6); WHITE BLOOD COUNT 14.4 x1000/uL (4.5-11.0)
[2023-07-11 06:20] LABS: CALCIUM 7.4 mg/dL (8.7-10.4); CARBON DIOXIDE 27 mEq/L (21-32); CHLORIDE 106 mEq/L (98-107); CREATININE 0.7 mg/dL (0.6-1.3); GLUCOSE 175 mg/dL (70-105); SODIUM 138 mEq/L (136-145); UREA NITROGEN BLOOD 23 mg/dL (9-23)
[2023-07-11] MEDS: LACTOBACILLUS GG CAPSULE PO SCH (10:20)
[2023-07-11] MEDS: LINEZOLID 600 MG PREMIX 300 ML IV SCH (10:20)
[2023-07-11] MEDS: RIFAMPIN 300MG CAPSULE PO SCH ×2 (10:20→16:33)
[2023-07-11] MEDS: NYSTATIN POWDER 15GM TOP SCH ×2 (10:29→16:33)
[2023-07-12] MEDS: INSULIN LISPRO 100 UNITS/ML SUBCUT SCH ×4 (02:04→18:12)
[2023-07-12] MEDS: VANCOMYCIN 1G PREMIX 200 ML IV SCH ×2 (02:05→21:04)
[2023-07-12] MEDS: LINEZOLID 600 MG PREMIX 300 ML IV SCH ×3 (02:06→21:45)
[2023-07-12] MEDS: METOCLOPRAMIDE HCL 10MG/2ML VIAL IV SCH ×3 (02:06→18:02)
[2023-07-12] MEDS: MIDODRINE HCL 5MG TABLET PO SCH ×4 (02:06→22:00)
[2023-07-12 04:30] VITALS: BP 110/71; PULSE 82; RESP 18; TEMP 97.4
[2023-07-12] MEDS: BLOOD SUGAR DIAGNOSTIC STRIP TEST SCH ×4 (05:09→18:00)
[2023-07-12 08:00] VITALS: BP 90/66; PULSE 82; RESP 18; TEMP 97.4
[2023-07-12] MEDS: RIFAMPIN 300MG CAPSULE PO SCH ×2 (09:39→16:40)
[2023-07-12] MEDS: NYSTATIN POWDER 15GM TOP SCH ×2 (09:39→16:41)
[2023-07-12] MEDS: LACTOBACILLUS GG CAPSULE PO SCH (09:39)
[2023-07-12 12:00] VITALS: BP 100/76; PULSE 80; RESP 18; TEMP 97.9
[2023-07-12 16:00] VITALS: BP 115/73; RESP 19; TEMP 96
[2023-07-12 20:00] VITALS: BP 103/68; PULSE 83; RESP 17; TEMP 98.2
[2023-07-13] VITALS: BP_SYST 115; BP_SYST 118; BP_DIAS 80; BP_DIAS 88; PULSE 72; RESP 17; TEMP 98.8
[2023-07-13] MEDS: ACETAMINOPHEN 650MG/20.3ML UDC PO PRN (03:50)
[2023-07-13] MEDS: MIDODRINE HCL 5MG TABLET PO SCH ×4 (03:58→22:00)
[2023-07-13 04:00] VITALS: BP 114/76; PULSE 72; RESP 17; TEMP 97.7
[2023-07-13] MEDS: INSULIN LISPRO 100 UNITS/ML SUBCUT SCH ×4 (06:00→17:43)
[2023-07-13] MEDS: BLOOD SUGAR DIAGNOSTIC STRIP TEST SCH ×5 (06:00→23:40)
[2023-07-13] MEDS: METOCLOPRAMIDE HCL 10MG/2ML VIAL IV SCH ×5 (06:00→23:40)
[2023-07-13 08:00] VITALS: BP 113/68; PULSE 76; RESP 20; TEMP 96.6
[2023-07-13] MEDS: LACTOBACILLUS GG CAPSULE PO SCH (09:00)
[2023-07-13] MEDS: RIFAMPIN 300MG CAPSULE PO SCH ×2 (09:00→16:38)
[2023-07-13] MEDS: NYSTATIN POWDER 15GM TOP SCH ×2 (09:00→16:38)
[2023-07-13] MEDS: LINEZOLID 600 MG PREMIX 300 ML IV SCH ×2 (10:42→22:04)
[2023-07-13 12:00] VITALS: BP 123/74; PULSE 68; RESP 20; TEMP 97.5
[2023-07-13 16:00] VITALS: BP 104/73; PULSE 94; RESP 20; TEMP 97.9
[2023-07-13 20:00] VITALS: BP 115/57; PULSE 95; RESP 18; TEMP 97.1
[2023-07-13] MEDS: VANCOMYCIN 1G PREMIX 200 ML IV SCH (20:17)
[2023-07-13] MEDS ORDERED: HYDROCODONE/ACETAMINOPHEN 10/325MG TABLET PO PRN (22:30)
[2023-07-13] MEDS: HYDROCODONE/ACETAMINOPHEN 10/325MG TABLET GT PRN (23:21)
[2023-07-14] VITALS: BP 103/61; PULSE 85; RESP 18; TEMP 98.1
[2023-07-14 04:00] VITALS: BP 93/51; PULSE 87; RESP 18; TEMP 97.2
[2023-07-14] MEDS: MIDODRINE HCL 5MG TABLET PO SCH ×4 (04:00→22:00)
[2023-07-14] MEDS: HYDROCODONE/ACETAMINOPHEN 10/325MG TABLET GT PRN (04:11)
[2023-07-14] MEDS: BLOOD SUGAR DIAGNOSTIC STRIP TEST SCH ×3 (06:00→23:39)
[2023-07-14] MEDS: INSULIN LISPRO 100 UNITS/ML SUBCUT SCH ×4 (06:00→17:36)
[2023-07-14] MEDS: METOCLOPRAMIDE HCL 10MG/2ML VIAL IV SCH ×3 (06:00→17:02)
[2023-07-14 06:38] LABS: BASOPHILS % 0.6 % (0.0-2.0); EOSINOPHILS % 0.8 % (0.0-5.0); HEMATOCRIT. 22.5 % (42.0-52.0); HEMOGLOBIN. 7.1 g/dL (14.0-18.0); LYMPHOCYTES % 11.2 % (20.0-50.0); MEAN CORPUSCULAR HEMOGLOBIN 28.3 pg (28.0-32.0); MEAN CORPUSCULAR HGB CONC 31.7 g/dL (31.0-37.0); MEAN CORPUSCULAR VOLUME 89.3 fL (80.0-94.0); MEAN PLATELET VOLUME 6.9 fl (7.4-10.4); MONOCYTES % 5.6 % (2.0-8.0); NEUTROPHILS % 81.8 % (40.0-76.0); PLATELET 455 x1000/uL (130-400); RED BLOOD CELL COUNT 2.52 mill/uL (4.7-6.1); RED CELL DISTRIBUTION WIDTH 15.2 % (11.6-14.6); WHITE BLOOD COUNT 14.5 x1000/uL (4.5-11.0)
[2023-07-14 07:02] LABS: CALCIUM 7.9 mg/dL (8.7-10.4); CARBON DIOXIDE 28 mEq/L (21-32); CHLORIDE 103 mEq/L (98-107); CREATININE 0.7 mg/dL (0.6-1.3); GLUCOSE 207 mg/dL (70-105); POTASSIUM 4.2 mEq/L (3.5-5.1); SODIUM 138 mEq/L (136-145); UREA NITROGEN BLOOD 29 mg/dL (9-23)
[2023-07-14 08:00] VITALS: BP 106/62; PULSE 73; RESP 20; TEMP 96.6
[2023-07-14] MEDS: RIFAMPIN 300MG CAPSULE PO SCH ×2 (08:23→16:04)
[2023-07-14] MEDS: LACTOBACILLUS GG CAPSULE PO SCH (08:23)
[2023-07-14] MEDS: LINEZOLID 600 MG PREMIX 300 ML IV SCH ×2 (09:35→22:00)
[2023-07-14 12:00] VITALS: BP 118/71; PULSE 78; RESP 20; TEMP 99.1
[2023-07-14] MEDS ORDERED: NALOXONE HCL 0.4MG/ML VIAL IV PRN (15:00)
[2023-07-14 16:00] VITALS: BP 90/54; PULSE 89; RESP 19; TEMP 98.9
[2023-07-14] MEDS: NYSTATIN POWDER 15GM TOP SCH ×2 (16:04→17:30)
[2023-07-14 20:00] VITALS: BP 100/73; PULSE 86; RESP 18; TEMP 97.1
[2023-07-14] MEDS: VANCOMYCIN 1G PREMIX 200 ML IV SCH (20:47)
[2023-07-15] VITALS (7 sets, daily range): BP systolic 104–153; BP diastolic 66–97; PULSE 76–112; RESP 18–20; TEMP 97.1–98.1; O2SAT 97–100
[2023-07-15] MEDS: METOCLOPRAMIDE HCL 10MG/2ML VIAL IV SCH ×4 (00:04→17:56)
[2023-07-15] MEDS: INSULIN LISPRO 100 UNITS/ML SUBCUT SCH ×4 (01:32→18:00)
[2023-07-15] MEDS: MIDODRINE HCL 5MG TABLET PO SCH ×4 (04:51→21:08)
[2023-07-15] MEDS: BLOOD SUGAR DIAGNOSTIC STRIP TEST SCH ×3 (06:30→17:57)
[2023-07-15] MEDS: NYSTATIN POWDER 15GM TOP SCH ×2 (08:57→17:00)
[2023-07-15] MEDS: LACTOBACILLUS GG CAPSULE PO SCH (08:57)
[2023-07-15] MEDS: RIFAMPIN 300MG CAPSULE PO SCH ×2 (08:57→17:00)
[2023-07-15] MEDS: LINEZOLID 600 MG PREMIX 300 ML IV SCH ×2 (09:01→21:20)
[2023-07-15] MEDS: VANCOMYCIN 1G PREMIX 200 ML IV SCH (20:09)
[2023-07-15] MEDS: HYDROCODONE/ACETAMINOPHEN 10/325MG TABLET GT PRN (20:09)
[2023-07-15] MEDS: LORAZEPAM 1MG TABLET GT PRN (20:18)
[2023-07-16] VITALS (10 sets, daily range): BP systolic 111–137; BP diastolic 58–80; PULSE 100–118; RESP 18–19; TEMP 96.9–99.1
[2023-07-16] MEDS: HYDROCODONE/ACETAMINOPHEN 10/325MG TABLET GT PRN ×2 (00:42→21:08)
[2023-07-16] MEDS: MIDODRINE HCL 5MG TABLET PO SCH ×4 (04:00→21:07)
[2023-07-16] MEDS: METOCLOPRAMIDE HCL 10MG/2ML VIAL IV SCH ×4 (05:00→17:51)
[2023-07-16] MEDS: INSULIN LISPRO 100 UNITS/ML SUBCUT SCH ×4 (06:00→18:00)
[2023-07-16] MEDS: BLOOD SUGAR DIAGNOSTIC STRIP TEST SCH ×4 (06:00→17:51)
[2023-07-16 07:24] LABS: BASOPHILS % 0.5 % (0.0-2.0); DIFFERENTIAL COMMENT 0; EOSINOPHILS % 0.5 % (0.0-5.0); LYMPHOCYTES % 15.1 % (20.0-50.0); MEAN CORPUSCULAR HEMOGLOBIN 28.5 pg (28.0-32.0); MEAN CORPUSCULAR HGB CONC 32.5 g/dL (31.0-37.0); MEAN CORPUSCULAR VOLUME 87.8 fL (80.0-94.0); MEAN PLATELET VOLUME 6.5 fl (7.4-10.4); MONOCYTES % 5.7 % (2.0-8.0); NEUTROPHILS % 78.2 % (40.0-76.0); PLATELET 535 x1000/uL (130-400); RED BLOOD CELL COUNT 2.28 mill/uL (4.7-6.1); RED CELL DISTRIBUTION WIDTH 16.6 % (11.6-14.6)
[2023-07-16] MEDS ORDERED: LIDOCAINE HCL 1% 10 MG/ML 10ML VIAL ONE (08:03)
[2023-07-16 08:06] LABS: HEMOGLOBIN. 6.5 g/dL (14.0-18.0)
[2023-07-16 08:43] LABS: CALCIUM 8.3 mg/dL (8.7-10.4); CARBON DIOXIDE 27 mEq/L (21-32); CHLORIDE 105 mEq/L (98-107); CREATININE 0.9 mg/dL (0.6-1.3); GLUCOSE 188 mg/dL (70-105); SODIUM 139 mEq/L (136-145); UREA NITROGEN BLOOD 41 mg/dL (9-23)
[2023-07-16] MEDS: RIFAMPIN 300MG CAPSULE PO SCH ×2 (09:00→17:53)
[2023-07-16] MEDS: LACTOBACILLUS GG CAPSULE PO SCH (09:00)
[2023-07-16] MEDS: NYSTATIN POWDER 15GM TOP SCH ×2 (09:00→17:00)
[2023-07-16] MEDS: LINEZOLID 600 MG PREMIX 300 ML IV SCH ×2 (09:10→21:37)
[2023-07-16] MEDS: VANCOMYCIN 1G PREMIX 200 ML IV SCH (19:34)
[2023-07-17] VITALS: BP 116/80; PULSE 106; RESP 18; TEMP 98.8
[2023-07-17 00:25] VITALS: BP 114/74; PULSE 106; RESP 20; TEMP 98.6
[2023-07-17 04:00] VITALS: BP 132/84; PULSE 106; RESP 18; TEMP 98.8
[2023-07-17] MEDS: MIDODRINE HCL 5MG TABLET PO SCH ×2 (04:00→09:19)
[2023-07-17] MEDS: METOCLOPRAMIDE HCL 10MG/2ML VIAL IV SCH ×2 (06:00)
[2023-07-17] MEDS: BLOOD SUGAR DIAGNOSTIC STRIP TEST SCH ×2 (06:00)
[2023-07-17] MEDS: INSULIN LISPRO 100 UNITS/ML SUBCUT SCH ×2 (06:00)
[2023-07-17] MEDS: HYDROCODONE/ACETAMINOPHEN 10/325MG TABLET GT PRN ×2 (06:42→10:43)
[2023-07-17] MEDS: LORAZEPAM 1MG TABLET GT PRN (06:42)
[2023-07-17 08:00] VITALS: BP 124/71; PULSE 95; RESP 17; TEMP 97.7
[2023-07-17] MEDS: RIFAMPIN 300MG CAPSULE PO SCH (09:11)
[2023-07-17] MEDS: LACTOBACILLUS GG CAPSULE PO SCH (09:11)
[2023-07-17] MEDS: LINEZOLID 600 MG PREMIX 300 ML IV SCH (09:12)
[2023-07-17] MEDS: NYSTATIN POWDER 15GM TOP SCH (09:12)
[2023-07-17 12:00] VITALS: BP 104/74; PULSE 95; RESP 17; TEMP 96.5
== END 2023-07-17 15:23 | DRG 710 ==
LOC: ER 14:27 → MICUSO 19:55 → EDBEDREQ 19:58 → EDBEDREQTM 19:58 → 8WST 05-26 00:43 → 6WST 05-26 19:24 → MICUNO 06-02 02:43 → MICUSO 06-02 10:23 → 5EST 06-10 10:44 → 7WST 06-18 21:00 → 6EST 06-23 21:10 → 5EST 06-27 10:36 → 5WST 07-06 04:58 → 7WST 07-06 12:08 → MICUNO 07-08 10:40 → 7WST 07-09 20:59 → 6EST 07-12 14:27
PROVIDERS: ADMIT Internal Medicine; ATTEND Internal Medicine
PROC: 0QBN0ZZ Excision of Right Metatarsal, Open Approach (ICD-10-PCS; 2023-05-26)
PROC: 30233N1 Transfusion of Nonautologous Red Blood Cells into Peripheral Vein, Percutaneous Approach (ICD-10-PCS; 2023-05-28)
PROC: 0Y6H0Z3 Detachment at Right Lower Leg, Low, Open Approach (ICD-10-PCS; 2023-06-01)
PROC: 02HV33Z Insertion of Infusion Device into Superior Vena Cava, Percutaneous Approach (ICD-10-PCS; 2023-06-05)
PROC: B548ZZA Ultrasonography of Superior Vena Cava, Guidance (ICD-10-PCS; 2023-06-05)
PROC: 0Y6C0Z1 Detachment at Right Upper Leg, High, Open Approach (ICD-10-PCS; 2023-06-07)
PROC: 0BH17EZ Insertion of Endotracheal Airway into Trachea, Via Natural or Artificial Opening (ICD-10-PCS; 2023-06-07)
PROC: 5A1945Z Respiratory Ventilation, 24-96 Consecutive Hours (ICD-10-PCS; 2023-06-07)
PROC: 4A00X4Z Measurement of Central Nervous Electrical Activity, External Approach (ICD-10-PCS; 2023-06-08)
PROC: 0DB68ZX Excision of Stomach, Via Natural or Artificial Opening Endoscopic, Diagnostic (ICD-10-PCS; 2023-06-15)
PROC: 0DB78ZX Excision of Stomach, Pylorus, Via Natural or Artificial Opening Endoscopic, Diagnostic (ICD-10-PCS; 2023-07-05)
PROC: 0DH63UZ Insertion of Feeding Device into Stomach, Percutaneous Approach (ICD-10-PCS; 2023-07-05)
PROC: 0BH17EZ Insertion of Endotracheal Airway into Trachea, Via Natural or Artificial Opening (ICD-10-PCS; 2023-07-08)
PROC: 5A1945Z Respiratory Ventilation, 24-96 Consecutive Hours (ICD-10-PCS; 2023-07-08)
PROC: 009U0ZZ Drainage of Spinal Canal, Open Approach (ICD-10-PCS; principal; 2023-07-10)
PROC: 0SG3071 Fusion of Lumbosacral Joint with Autologous Tissue Substitute, Posterior Approach, Posterior Column, Open Approach (ICD-10-PCS; 2023-07-10)
PROC: 0SB40ZZ Excision of Lumbosacral Disc, Open Approach (ICD-10-PCS; 2023-07-10)
PROC: 01NB0ZZ Release Lumbar Nerve, Open Approach (ICD-10-PCS; 2023-07-10)
PROC: 01NR0ZZ Release Sacral Nerve, Open Approach (ICD-10-PCS; 2023-07-10)
PROC: 02HV33Z Insertion of Infusion Device into Superior Vena Cava, Percutaneous Approach (ICD-10-PCS; 2023-07-16)
PROC: B548ZZA Ultrasonography of Superior Vena Cava, Guidance (ICD-10-PCS; 2023-07-16)
PROC: B5181ZA Fluoroscopy of Superior Vena Cava using Low Osmolar Contrast, Guidance (ICD-10-PCS; 2023-07-16)
DX: A41.59 Other Gram-negative sepsis (principal); J96.00 Acute respiratory failure, unspecified whether with hypoxia or hypercapnia; R65.21 Severe sepsis with septic shock; G06.1 Intraspinal abscess and granuloma; G93.41 Metabolic encephalopathy; E43 Unspecified severe protein-calorie malnutrition; J15.0 Pneumonia due to Klebsiella pneumoniae; E11.52 Type 2 diabetes mellitus with diabetic peripheral angiopathy with gangrene; E11.649 Type 2 diabetes mellitus with hypoglycemia without coma; E11.621 Type 2 diabetes mellitus with foot ulcer; E87.1 Hypo-osmolality and hyponatremia; L97.519 Non-pressure chronic ulcer of other part of right foot with unspecified severity; L03.115 Cellulitis of right lower limb; I89.0 Lymphedema, not elsewhere classified; N39.0 Urinary tract infection, site not specified; L02.611 Cutaneous abscess of right foot; R13.12 Dysphagia, oropharyngeal phase; R62.7 Adult failure to thrive; Z66 Do not resuscitate; E11.65 Type 2 diabetes mellitus with hyperglycemia; D64.9 Anemia, unspecified; D75.838 Other thrombocytosis; E11.628 Type 2 diabetes mellitus with other skin complications; E11.69 Type 2 diabetes mellitus with other specified complication; M46.27 Osteomyelitis of vertebra, lumbosacral region; M46.47 Discitis, unspecified, lumbosacral region; L89.152 Pressure ulcer of sacral region, stage 2; G82.20 Paraplegia, unspecified; J43.9 Emphysema, unspecified; K29.70 Gastritis, unspecified, without bleeding; I10 Essential (primary) hypertension; Z68.30 Body mass index [BMI] 30.0-30.9, adult; Z79.4 Long term (current) use of insulin; Z78.1 Physical restraint status; Z79.84 Long term (current) use of oral hypoglycemic drugs; Z91.199 Patient's noncompliance with other medical treatment and regimen due to unspecified reason
CPT/HCPCS: 36415; 36573; 36600; 70551; 71045; 71250; 72100; 72148; 72158; 73600; 73620; 74176; 75635; 76000; 80048; 80053; 80202; 80305; 81003; 82140; 82375; 82550; 82784; 82805; 82962; 83036; 83605; 83735; 84100; 84145; 84478; 85014; 85018; 85025; 85027; 85384; 85651; 86334; 86850; 86900; 86920; 87070; 87075; 87077; 87186; 87426; 88305; 88307; 88311; 88312; 88313; 93005; 93306; 93312; 93923; 94002; 94003; 94640; 95816; 95925; 95926; 95928; 95929; 97022; 97110; 97161; 97164; 97167; 99285; A6261; C1725; C1769; C1893; C9113; J0278; J0690; J0878; J1100; J1170; J1580; J1815; J2020; J2060; J2185; J2250; J2270; J2310; J2405; J2543; J2704; J2765; J3010; J3370; J3411; J3490; J7030; J7040; J7042; J7050; J7060; J7070; J7120; P9016; Q0163; Q9967; A4315; A5200; C1713